=== PATIENT | female | born 1950 | race Caucasian/White ===

== ENCOUNTER 2022-01-05 10:05 | Inpatient (IN) | payer MEDICARE ==
[~2022-01-05] VITALS: Ht 165.1 cm; Wt 85.0 kg
[2022-01-05 11:14] LABS: Basophils # (auto) 0.1 10 ^3/uL (0-0.2); Eosinophils # (auto) 0 10 ^3/uL (0-0.8); Eosinophils % (auto) 0.2 % (0.0-7.0); Hematocrit 48.3 % (36.0-46.0); Hemoglobin 16.9 g/dL (12.2-16.2); Lymphocytes # (auto) 0.6 10 ^3/uL (0.4-5.4); Mean Corpuscular Hemoglobin 31.3 pg (28.0-32.0); Mean Corpuscular Hgb Conc. 34.9 g/dL (32.0-36.0); Mean Corpuscular Volume 89.5 fL (80.0-100.0); Monocytes # (auto) 0.3 10 ^3/uL (0-1.3); Monocytes % (auto) 4.9 % (0.0-12.0); Neutrophils # (auto) 5.4 10 ^3/uL (1.6-8.6); Neutrophils % (auto) 84.9 % (37.0-80.0); Nucleated Red Blood Cells % 0.2 %; Red Blood Cells 5.39 10^6/uL (4.0-5.20); Red Cell Distribution Width 13.3 % (11.8-14.3); White Blood Cell 6.4 10^3/uL (4.4-10.8)
[2022-01-05 11:27] LABS: Albumin 3.1 g/dL (3.4-5.0); Calcium 8.2 mg/dL (8.5-10.1); Magnesium 2.6 mg/dL (1.6-2.6)
[2022-01-05 11:33] LABS: BUN/Creatinine Ratio 18.9; Bilirubin, Total 1.5 mg/dL (0.2-1.0); Total Protein 7.6 g/dL (6.4-8.2)
[2022-01-05] MEDS ORDERED: POTASSIUM EFFERVESENT TAB 25 MEQ PO ONE (13:00)
[2022-01-05 13:11] LABS: Urine Bacteria NONE SEEN /hpf (None Seen); Urine Blood Negative /uL (Negative); Urine Specific Gravity 1.022 (1.001-1.035); Urine WBC 34 /hpf (0 - 5); Urine WBC Clumps PRESENT /hpf (None Seen)
[2022-01-05] MEDS ORDERED: cefTRIAXone 1GM/50ML D5W 50 ML IV ONE (15:00)
[2022-01-05] MEDS ORDERED: DexAMETHasone SOD PHOS 10MG/1ML VIAL INJ IV ONE (15:00)
[2022-01-05] MEDS ORDERED: AZITHROMYCIN 500MG/ 250ML 250 ML IV ONE (15:00)
[2022-01-05] MEDS ORDERED: MORPHINE SULFATE INJECTION 2 MG/ML SYRG IV PRN (15:45)
[2022-01-05] MEDS ORDERED: NITROGLYCERIN 0.4 MG SL TAB SL PRN (15:45)
[2022-01-05] MEDS ORDERED: REMDESIVIR PER PHARMACY 0 ML IV SCH (17:45)
[2022-01-05] MEDS ORDERED: REMDESIVIR 200 MG in NS 210ml LOADING DOSE ADULT IV ONE (20:00)
[2022-01-05] MEDS ORDERED: IOHEXOL 350 MG/ML 100ML IJ ONE (20:36)
[2022-01-05] MEDS ORDERED: ASCORBIC ACID 500 MG TAB PO SCH (22:00)
[2022-01-05] MEDS: ALBUTEROL SULF HFA 90MCG INH 200DOSE IN PRN (22:29)
[2022-01-05] MEDS: ENOXAPARIN SOD 40 MG/0.4 ML SYRINGE SC SCH (23:28)
[2022-01-05 23:39] VITALS: BP 120/67
[2022-01-06] VITALS (7 sets, daily range): BP systolic 119–142; BP diastolic 67–96
[2022-01-06] MEDS ORDERED: APIX5TAB PO (06:20)
[2022-01-06] MEDS ORDERED: ALBU108A5 INH (06:20)
[2022-01-06 06:30] LABS: Basophils # (auto) 0 10 ^3/uL (0-0.2); Basophils % (auto) 0.1 % (0.0-2.0); Eosinophils # (auto) 0 10 ^3/uL (0-0.8); Hematocrit 43.1 % (36.0-46.0); Hemoglobin 15.1 g/dL (12.2-16.2); Lymphocytes # (auto) 0.5 10 ^3/uL (0.4-5.4); Mean Corpuscular Hemoglobin 30.9 pg (28.0-32.0); Mean Corpuscular Volume 88.4 fL (80.0-100.0); Monocytes # (auto) 0.2 10 ^3/uL (0-1.3); Monocytes % (auto) 7.7 % (0.0-12.0); Neutrophils # (auto) 2.4 10 ^3/uL (1.6-8.6); Neutrophils % (auto) 77.2 % (37.0-80.0); Nucleated Red Blood Cells % 0.1 %; Red Blood Cells 4.87 10^6/uL (4.0-5.20); Red Cell Distribution Width 13.3 % (11.8-14.3); White Blood Cell 3.1 10^3/uL (4.4-10.8)
[2022-01-06 06:39] LABS: Albumin 2.5 g/dL (3.4-5.0); BUN/Creatinine Ratio 19.7; Calcium 8.1 mg/dL (8.5-10.1); Potassium 3.4 mmol/L (3.5-5.1)
[2022-01-06 06:43] LABS: Total Protein 6.5 g/dL (6.4-8.2)
[2022-01-06] MEDS: ZINC SULFATE 220mg CAP or TAB PO SCH (08:45)
[2022-01-06] MEDS: AZITHROMYCIN 500MG/ 250ML 250 ML IV SCH (08:45)
[2022-01-06] MEDS: ASCORBIC ACID 1,000 MG TAB PO SCH (08:45)
[2022-01-06] MEDS: ENOXAPARIN SOD 40 MG/0.4 ML SYRINGE SC SCH ×2 (08:46→22:31)
[2022-01-06] MEDS: CHOLECALCIFEROL (VITD3) 2,000 UNIT CAP/TAB PO SCH (08:46)
[2022-01-06] MEDS ORDERED: ZINC SULFATE 220mg CAP or TAB PO SCH (10:00)
[2022-01-06] MEDS ORDERED: DexAMETHasone SOD PHOS 10MG/1ML VIAL INJ IV SCH (10:00)
[2022-01-06] MEDS ORDERED: ENOXAPARIN SOD 40 MG/0.4 ML SYRINGE SC SCH (10:00)
[2022-01-06] MEDS: methylPREDNISolone SOD SUCC 125 MG/2 ML VL IV SCH ×2 (14:00→22:31)
[2022-01-06] MEDS: REMDESIVIR 100mg 100 MG in SODIUM CHL 0.9% 230 ML IV SCH (16:07)
[2022-01-06] MEDS: ALBUTEROL SULF HFA 90MCG INH 200DOSE IN PRN (22:02)
[2022-01-06] MEDS: PANTOPRAZOLE 40 MG TAB PO SCH (22:31)
[2022-01-07 05:00] VITALS: BP 114/73
[2022-01-07] MEDS: methylPREDNISolone SOD SUCC 125 MG/2 ML VL IV SCH ×3 (06:01→22:56)
[2022-01-07 07:09] LABS: Albumin 2.3 g/dL (3.4-5.0); Calcium 8.2 mg/dL (8.5-10.1); Potassium 4.3 mmol/L (3.5-5.1)
[2022-01-07 07:12] LABS: BUN/Creatinine Ratio 23.2; Bilirubin, Total 1.2 mg/dL (0.2-1.0); Total Protein 6.4 g/dL (6.4-8.2)
[2022-01-07 08:00] VITALS: BP 142/80
[2022-01-07] MEDS: AZITHROMYCIN 500MG/ 250ML 250 ML IV SCH (09:34)
[2022-01-07] MEDS: ENOXAPARIN SOD 40 MG/0.4 ML SYRINGE SC SCH ×2 (09:34→22:49)
[2022-01-07] MEDS: CHOLECALCIFEROL (VITD3) 2,000 UNIT CAP/TAB PO SCH (09:34)
[2022-01-07] MEDS: ASCORBIC ACID 1,000 MG TAB PO SCH (09:34)
[2022-01-07] MEDS: ZINC SULFATE 220mg CAP or TAB PO SCH (09:34)
[2022-01-07] MEDS: PANTOPRAZOLE 40 MG TAB PO SCH ×2 (09:34→22:49)
[2022-01-07 13:00] VITALS: BP 115/65
[2022-01-07] MEDS: REMDESIVIR 100mg 100 MG in SODIUM CHL 0.9% 230 ML IV SCH (13:36)
[2022-01-07 16:00] VITALS: BP 116/59
[2022-01-07] MEDS: ALBUTEROL SULF HFA 90MCG INH 200DOSE IN PRN (21:15)
[2022-01-07 22:00] VITALS: BP 110/68
[2022-01-08] VITALS (8 sets, daily range): BP systolic 109–142; BP diastolic 66–99
[2022-01-08] MEDS: methylPREDNISolone SOD SUCC 125 MG/2 ML VL IV SCH ×3 (05:28→22:43)
[2022-01-08] MEDS: ALBUTEROL SULF HFA 90MCG INH 200DOSE IN PRN (05:43)
[2022-01-08 05:48] LABS: Potassium 3.6 mmol/L (3.5-5.1)
[2022-01-08 05:54] LABS: Albumin 2.4 g/dL (3.4-5.0); BUN/Creatinine Ratio 25.9; Bilirubin, Total 0.9 mg/dL (0.2-1.0); Total Protein 6.2 g/dL (6.4-8.2)
[2022-01-08] MEDS: CHOLECALCIFEROL (VITD3) 2,000 UNIT CAP/TAB PO SCH (11:03)
[2022-01-08] MEDS: ZINC SULFATE 220mg CAP or TAB PO SCH (11:04)
[2022-01-08] MEDS: ENOXAPARIN SOD 40 MG/0.4 ML SYRINGE SC SCH (11:04)
[2022-01-08] MEDS: PANTOPRAZOLE 40 MG TAB PO SCH ×2 (11:04→22:43)
[2022-01-08] MEDS: ASCORBIC ACID 1,000 MG TAB PO SCH (11:04)
[2022-01-08] MEDS: AZITHROMYCIN 500MG/ 250ML 250 ML IV SCH (11:04)
[2022-01-08] MEDS ORDERED: BUDESONIDE (INHALATION) 0.5 MG/2 ML NEB NEB ONE (12:00)
[2022-01-08] MEDS ORDERED: FAMOTIDINE 20 MG TAB PO ONE (12:00)
[2022-01-08] MEDS: IPRATROPIUM BROM 0.5 MG/2.5ML INH SOL NEB SCH ×2 (12:00→18:00)
[2022-01-08] MEDS: ALBUTEROL SULF 2.5 MG/0.5ML(0.5%) NEB SOLN NEB SCH ×2 (12:00→18:00)
[2022-01-08] MEDS ORDERED: cefTRIAXone 1GM/50ML D5W 50 ML IV ONE (12:00)
[2022-01-08] MEDS: REMDESIVIR 100mg 100 MG in SODIUM CHL 0.9% 230 ML IV SCH (15:06)
[2022-01-08] MEDS: BUDESONIDE (INHALATION) 0.5 MG/2 ML NEB NEB SCH (22:00)
[2022-01-08] MEDS: APIXABAN 5 MG TAB PO SCH (22:43)
[2022-01-09 05:00] VITALS: BP 124/73
[2022-01-09] MEDS: methylPREDNISolone SOD SUCC 125 MG/2 ML VL IV SCH ×3 (05:46→22:40)
[2022-01-09 07:58] LABS: Albumin 2.7 g/dL (3.4-5.0); BUN/Creatinine Ratio 27.3; Bilirubin, Total 1.2 mg/dL (0.2-1.0); Calcium 8.8 mg/dL (8.5-10.1); Potassium 3.6 mmol/L (3.5-5.1); Total Protein 6.6 g/dL (6.4-8.2)
[2022-01-09] MEDS: ALBUTEROL SULF 2.5 MG/0.5ML(0.5%) NEB SOLN NEB SCH (08:28)
[2022-01-09] MEDS: BUDESONIDE (INHALATION) 0.5 MG/2 ML NEB NEB SCH (08:28)
[2022-01-09] MEDS: IPRATROPIUM BROM 0.5 MG/2.5ML INH SOL NEB SCH (08:28)
[2022-01-09 09:00] VITALS: BP 122/71
[2022-01-09] MEDS: cefTRIAXone 1GM/50ML D5W 50 ML IV SCH (09:07)
[2022-01-09] MEDS: ZINC SULFATE 220mg CAP or TAB PO SCH (09:07)
[2022-01-09] MEDS: APIXABAN 5 MG TAB PO SCH ×2 (09:08→22:34)
[2022-01-09] MEDS: ASCORBIC ACID 1,000 MG TAB PO SCH (09:08)
[2022-01-09] MEDS: FAMOTIDINE 20 MG TAB PO SCH (09:08)
[2022-01-09] MEDS: PANTOPRAZOLE 40 MG TAB PO SCH ×2 (09:08→22:34)
[2022-01-09] MEDS: CHOLECALCIFEROL (VITD3) 2,000 UNIT CAP/TAB PO SCH (09:08)
[2022-01-09] MEDS: AZITHROMYCIN 500MG/ 250ML 250 ML IV SCH (10:30)
[2022-01-09] MEDS: AMPICILLIN INJ 500 MG in SODIUM CHL 0.9% 50 ML IV SCH ×2 (12:00→18:15)
[2022-01-09 14:00] VITALS: BP 125/85
[2022-01-09] MEDS: ONDANSETRON HCL 4 MG/2 ML VIAL IV PRN (14:39)
[2022-01-09] MEDS: REMDESIVIR 100mg 100 MG in SODIUM CHL 0.9% 230 ML IV SCH (15:02)
[2022-01-09 17:00] VITALS: BP 124/65
[2022-01-09] MEDS: BUDESONIDE (INHALATION) 180 MCG IH IN SCH (21:22)
[2022-01-09] MEDS: ALBUTEROL SULF HFA 90MCG INH 200DOSE IN PRN (21:22)
[2022-01-09 22:00] VITALS: BP 139/92
[2022-01-10] MEDS ORDERED: AMPICILLIN SOD 500 MG INJ ONE (00:58)
[2022-01-10] MEDS: AMPICILLIN INJ 500 MG in SODIUM CHL 0.9% 50 ML IV SCH ×5 (01:04→23:51)
[2022-01-10 05:00] VITALS: BP 126/63
[2022-01-10] MEDS: methylPREDNISolone SOD SUCC 125 MG/2 ML VL IV SCH ×2 (06:59→21:33)
[2022-01-10 09:00] VITALS: BP 140/68
[2022-01-10] MEDS: cefTRIAXone 1GM/50ML D5W 50 ML IV SCH ×2 (09:56→15:30)
[2022-01-10] MEDS: CHOLECALCIFEROL (VITD3) 2,000 UNIT CAP/TAB PO SCH (09:57)
[2022-01-10] MEDS: ZINC SULFATE 220mg CAP or TAB PO SCH (09:57)
[2022-01-10] MEDS: ASCORBIC ACID 1,000 MG TAB PO SCH (09:57)
[2022-01-10] MEDS: DOCUSATE SOD 100 MG CAP PO PRN (09:57)
[2022-01-10] MEDS: FAMOTIDINE 20 MG TAB PO SCH (09:57)
[2022-01-10] MEDS: APIXABAN 5 MG TAB PO SCH ×2 (09:57→21:33)
[2022-01-10] MEDS: PANTOPRAZOLE 40 MG TAB PO SCH ×2 (09:57→21:33)
[2022-01-10] MEDS: BUDESONIDE (INHALATION) 180 MCG IH IN SCH ×2 (10:00→21:46)
[2022-01-10] MEDS: AZITHROMYCIN 500MG/ 250ML 250 ML IV SCH (10:08)
[2022-01-10] MEDS ORDERED: POTASSIUM CHL 20 Meq TABLET PO ONE (11:15)
[2022-01-10] MEDS ORDERED: FUROSEMIDE 20 MG/2 ML VIAL IV ONE (11:15)
[2022-01-10] MEDS: ALBUTEROL SULF HFA 90MCG INH 200DOSE IN PRN ×2 (12:32→21:46)
[2022-01-10 13:00] VITALS: BP 118/78
[2022-01-10] MEDS ORDERED: methylPREDNISolone SOD SUCC 40 MG/ML VL ONE (15:27)
[2022-01-10 17:00] VITALS: BP 109/81
[2022-01-10 22:00] VITALS: BP 116/56
[2022-01-11 05:00] VITALS: BP 121/61
[2022-01-11] MEDS: BUDESONIDE (INHALATION) 180 MCG IH IN SCH ×2 (06:57→19:12)
[2022-01-11] MEDS: ALBUTEROL SULF HFA 90MCG INH 200DOSE IN PRN ×2 (06:57→19:12)
[2022-01-11] MEDS: AMPICILLIN INJ 500 MG in SODIUM CHL 0.9% 50 ML IV SCH ×3 (07:14→18:50)
[2022-01-11 09:00] VITALS: BP 131/86
[2022-01-11] MEDS: methylPREDNISolone SOD SUCC 125 MG/2 ML VL IV SCH ×2 (09:59→22:07)
[2022-01-11] MEDS: FAMOTIDINE 20 MG TAB PO SCH (09:59)
[2022-01-11] MEDS: ZINC SULFATE 220mg CAP or TAB PO SCH (09:59)
[2022-01-11] MEDS: DOCUSATE SOD 100 MG CAP PO PRN (09:59)
[2022-01-11] MEDS: APIXABAN 5 MG TAB PO SCH ×2 (09:59→22:07)
[2022-01-11] MEDS: ASCORBIC ACID 1,000 MG TAB PO SCH (10:00)
[2022-01-11] MEDS: CHOLECALCIFEROL (VITD3) 2,000 UNIT CAP/TAB PO SCH (10:01)
[2022-01-11] MEDS: PANTOPRAZOLE 40 MG TAB PO SCH ×2 (10:16→22:07)
[2022-01-11] MEDS ORDERED: SALINE 0.65 % NASAL SPRAY 45ML BOTTLE EACHNOSTRI ONE (11:00)
[2022-01-11] MEDS ORDERED: DOCUSATE SOD 100 MG CAP PO ONE (11:00)
[2022-01-11] MEDS ORDERED: LACTULOSE 20Gm/30ML SOLN PO ONE (11:00)
[2022-01-11 13:00] VITALS: BP 135/96
[2022-01-11 17:00] VITALS: BP 127/81
[2022-01-11] MEDS: SALINE 0.65 % NASAL SPRAY 45ML BOTTLE EACHNOSTRI SCH ×2 (18:58→22:00)
[2022-01-11 22:09] VITALS: BP 158/86
[2022-01-12] MEDS: AMPICILLIN INJ 500 MG in SODIUM CHL 0.9% 50 ML IV SCH ×4 (00:12→17:02)
[2022-01-12 05:12] VITALS: BP 133/65
[2022-01-12] MEDS: SALINE 0.65 % NASAL SPRAY 45ML BOTTLE EACHNOSTRI SCH ×4 (06:22→21:16)
[2022-01-12 06:42] LABS: Basophils # (auto) 0 10 ^3/uL (0-0.2); Basophils % (auto) 0.1 % (0.0-2.0); Eosinophils # (auto) 0 10 ^3/uL (0-0.8); Hematocrit 45.8 % (36.0-46.0); Hemoglobin 15.4 g/dL (12.2-16.2); Lymphocytes # (auto) 0.4 10 ^3/uL (0.4-5.4); Lymphocytes % (auto) 6.4 % (10.0-50.0); Mean Corpuscular Hemoglobin 30.1 pg (28.0-32.0); Mean Corpuscular Hgb Conc. 33.6 g/dL (32.0-36.0); Mean Corpuscular Volume 89.4 fL (80.0-100.0); Monocytes # (auto) 0.1 10 ^3/uL (0-1.3); Monocytes % (auto) 2.2 % (0.0-12.0); Neutrophils # (auto) 5.2 10 ^3/uL (1.6-8.6); Neutrophils % (auto) 91.3 % (37.0-80.0); Nucleated Red Blood Cells % 0.1 %; Red Blood Cells 5.12 10^6/uL (4.0-5.20); Red Cell Distribution Width 13.4 % (11.8-14.3); White Blood Cell 5.7 10^3/uL (4.4-10.8)
[2022-01-12 07:02] LABS: Potassium 4.5 mmol/L (3.5-5.1)
[2022-01-12 07:08] LABS: BUN/Creatinine Ratio 30.4; Calcium 7.9 mg/dL (8.5-10.1)
[2022-01-12] MEDS: cefTRIAXone 1GM/50ML D5W 50 ML IV SCH (08:09)
[2022-01-12] MEDS: methylPREDNISolone SOD SUCC 125 MG/2 ML VL IV SCH ×2 (08:55→21:17)
[2022-01-12] MEDS: ZINC SULFATE 220mg CAP or TAB PO SCH (08:56)
[2022-01-12] MEDS: APIXABAN 5 MG TAB PO SCH ×2 (08:59→21:17)
[2022-01-12] MEDS: FAMOTIDINE 20 MG TAB PO SCH (08:59)
[2022-01-12] MEDS: PANTOPRAZOLE 40 MG TAB PO SCH ×2 (08:59→21:17)
[2022-01-12 09:00] VITALS: BP 154/93
[2022-01-12] MEDS: CHOLECALCIFEROL (VITD3) 2,000 UNIT CAP/TAB PO SCH (09:00)
[2022-01-12] MEDS: ASCORBIC ACID 1,000 MG TAB PO SCH (09:00)
[2022-01-12] MEDS: BUDESONIDE (INHALATION) 180 MCG IH IN SCH ×2 (09:48→22:00)
[2022-01-12] MEDS: ALBUTEROL SULF HFA 90MCG INH 200DOSE IN PRN (09:48)
[2022-01-12] MEDS ORDERED: FUROSEMIDE 40 MG TAB PO ONE (12:45)
[2022-01-12] MEDS ORDERED: POTASSIUM CHL 20 Meq TABLET PO ONE (12:45)
[2022-01-12 13:00] VITALS: BP 137/84
[2022-01-12 17:00] VITALS: BP 113/64
[2022-01-12 21:20] VITALS: BP 128/61
[2022-01-13] MEDS: AMPICILLIN INJ 500 MG in SODIUM CHL 0.9% 50 ML IV SCH ×4 (00:25→23:24)
[2022-01-13 05:00] VITALS: BP 126/53
[2022-01-13] MEDS: BUDESONIDE (INHALATION) 180 MCG IH IN SCH ×2 (05:45→18:45)
[2022-01-13] MEDS: ALBUTEROL SULF HFA 90MCG INH 200DOSE IN PRN ×2 (05:46→20:11)
[2022-01-13] MEDS: SALINE 0.65 % NASAL SPRAY 45ML BOTTLE EACHNOSTRI SCH ×5 (06:14→22:01)
[2022-01-13 09:00] VITALS: BP 110/67
[2022-01-13] MEDS: methylPREDNISolone SOD SUCC 125 MG/2 ML VL IV SCH ×2 (09:04→21:57)
[2022-01-13] MEDS: ZINC SULFATE 220mg CAP or TAB PO SCH (09:04)
[2022-01-13] MEDS: cefTRIAXone 1GM/50ML D5W 50 ML IV SCH (09:04)
[2022-01-13] MEDS: APIXABAN 5 MG TAB PO SCH ×2 (09:05→21:57)
[2022-01-13] MEDS: POTASSIUM CHL 20 Meq TABLET PO SCH (09:07)
[2022-01-13] MEDS: FAMOTIDINE 20 MG TAB PO SCH (09:08)
[2022-01-13] MEDS: FUROSEMIDE 40 MG TAB PO SCH (09:08)
[2022-01-13] MEDS: CHOLECALCIFEROL (VITD3) 2,000 UNIT CAP/TAB PO SCH (09:10)
[2022-01-13] MEDS: ASCORBIC ACID 1,000 MG TAB PO SCH (09:10)
[2022-01-13] MEDS: PANTOPRAZOLE 40 MG TAB PO SCH ×2 (09:10→21:57)
[2022-01-13 13:00] VITALS: BP 135/80
[2022-01-13 16:39] VITALS: BP 127/85
[2022-01-13 22:00] VITALS: BP 137/54
[2022-01-14 05:00] VITALS: BP 104/58
[2022-01-14] MEDS: SALINE 0.65 % NASAL SPRAY 45ML BOTTLE EACHNOSTRI SCH ×4 (06:20→21:19)
[2022-01-14] MEDS: AMPICILLIN INJ 500 MG in SODIUM CHL 0.9% 50 ML IV SCH ×4 (06:21→23:40)
[2022-01-14] MEDS: BUDESONIDE (INHALATION) 180 MCG IH IN SCH ×2 (06:30→19:24)
[2022-01-14] MEDS: ALBUTEROL SULF HFA 90MCG INH 200DOSE IN PRN ×2 (07:15→19:24)
[2022-01-14 08:30] VITALS: BP 100/54
[2022-01-14] MEDS: cefTRIAXone 1GM/50ML D5W 50 ML IV SCH (09:00)
[2022-01-14] MEDS: ZINC SULFATE 220mg CAP or TAB PO SCH (09:11)
[2022-01-14] MEDS: APIXABAN 5 MG TAB PO SCH ×2 (09:11→21:18)
[2022-01-14] MEDS: methylPREDNISolone SOD SUCC 125 MG/2 ML VL IV SCH ×2 (09:11→21:18)
[2022-01-14] MEDS: FUROSEMIDE 40 MG TAB PO SCH (09:12)
[2022-01-14] MEDS: POTASSIUM CHL 20 Meq TABLET PO SCH (09:12)
[2022-01-14] MEDS: FAMOTIDINE 20 MG TAB PO SCH (09:12)
[2022-01-14] MEDS: PANTOPRAZOLE 40 MG TAB PO SCH ×2 (09:13→21:18)
[2022-01-14] MEDS: CHOLECALCIFEROL (VITD3) 2,000 UNIT CAP/TAB PO SCH (09:13)
[2022-01-14] MEDS: ASCORBIC ACID 1,000 MG TAB PO SCH (09:13)
[2022-01-14 13:00] VITALS: BP 107/62
[2022-01-14 17:00] VITALS: BP 111/73
[2022-01-14 22:00] VITALS: BP 95/56
[2022-01-15 05:00] VITALS: BP 112/68
[2022-01-15] MEDS: SALINE 0.65 % NASAL SPRAY 45ML BOTTLE EACHNOSTRI SCH ×4 (05:43→22:09)
[2022-01-15] MEDS: AMPICILLIN INJ 500 MG in SODIUM CHL 0.9% 50 ML IV SCH (05:43)
[2022-01-15] MEDS: ALBUTEROL SULF HFA 90MCG INH 200DOSE IN PRN ×2 (06:36→19:54)
[2022-01-15] MEDS: BUDESONIDE (INHALATION) 180 MCG IH IN SCH ×2 (06:36→19:54)
[2022-01-15 08:00] VITALS: BP 107/62
[2022-01-15] MEDS: FUROSEMIDE 40 MG TAB PO SCH (10:00)
[2022-01-15] MEDS: cefTRIAXone 1GM/50ML D5W 50 ML IV SCH (10:04)
[2022-01-15] MEDS: PANTOPRAZOLE 40 MG TAB PO SCH ×2 (10:05→22:10)
[2022-01-15] MEDS: CHOLECALCIFEROL (VITD3) 2,000 UNIT CAP/TAB PO SCH (10:05)
[2022-01-15] MEDS: POTASSIUM CHL 20 Meq TABLET PO SCH (10:05)
[2022-01-15] MEDS: APIXABAN 5 MG TAB PO SCH ×2 (10:05→22:10)
[2022-01-15] MEDS: FAMOTIDINE 20 MG TAB PO SCH (10:05)
[2022-01-15] MEDS: ZINC SULFATE 220mg CAP or TAB PO SCH (10:05)
[2022-01-15] MEDS: methylPREDNISolone SOD SUCC 125 MG/2 ML VL IV SCH (10:05)
[2022-01-15] MEDS: ASCORBIC ACID 1,000 MG TAB PO SCH (10:06)
[2022-01-15 12:00] VITALS: BP 124/78
[2022-01-15] MEDS: Ensure HIGH Protein Vanilla 8oz Bottle PO SCH ×2 (12:00→18:50)
[2022-01-15 16:00] VITALS: BP 110/66
[2022-01-15 22:00] VITALS: BP 119/78
[2022-01-15] MEDS: AMOXICILLIN/CLAVUL 875 MG TAB PO SCH (22:10)
[2022-01-16 05:00] VITALS: BP 94/49
[2022-01-16] MEDS: BUDESONIDE (INHALATION) 180 MCG IH IN SCH ×2 (07:16→19:37)
[2022-01-16] MEDS: ALBUTEROL SULF HFA 90MCG INH 200DOSE IN PRN ×2 (07:17→19:37)
[2022-01-16 08:07] VITALS: BP 95/57
[2022-01-16] MEDS: predniSONE 20 MG TAB PO SCH (09:30)
[2022-01-16] MEDS: SALINE 0.65 % NASAL SPRAY 45ML BOTTLE EACHNOSTRI SCH ×4 (09:30→22:00)
[2022-01-16] MEDS: Ensure HIGH Protein Vanilla 8oz Bottle PO SCH ×3 (09:30→18:40)
[2022-01-16] MEDS: AMOXICILLIN/CLAVUL 875 MG TAB PO SCH ×2 (09:31→22:00)
[2022-01-16] MEDS: APIXABAN 5 MG TAB PO SCH ×2 (09:31→22:00)
[2022-01-16] MEDS: POTASSIUM CHL 20 Meq TABLET PO SCH (09:31)
[2022-01-16] MEDS: ZINC SULFATE 220mg CAP or TAB PO SCH (09:31)
[2022-01-16] MEDS: CHOLECALCIFEROL (VITD3) 2,000 UNIT CAP/TAB PO SCH (09:33)
[2022-01-16] MEDS: FAMOTIDINE 20 MG TAB PO SCH (09:33)
[2022-01-16] MEDS: ASCORBIC ACID 1,000 MG TAB PO SCH (09:33)
[2022-01-16] MEDS: PANTOPRAZOLE 40 MG TAB PO SCH ×2 (09:33→22:00)
[2022-01-16] MEDS: FUROSEMIDE 40 MG TAB PO SCH (10:00)
[2022-01-16 12:26] VITALS: BP 98/49
[2022-01-16 17:00] VITALS: BP 100/57
[2022-01-16 22:00] VITALS: BP 113/58
[2022-01-17 05:00] VITALS: BP 101/61
[2022-01-17] MEDS: SALINE 0.65 % NASAL SPRAY 45ML BOTTLE EACHNOSTRI SCH ×4 (06:00→22:06)
[2022-01-17] MEDS: BUDESONIDE (INHALATION) 180 MCG IH IN SCH ×2 (07:32→19:41)
[2022-01-17] MEDS: ALBUTEROL SULF HFA 90MCG INH 200DOSE IN PRN ×2 (07:32→19:41)
[2022-01-17 09:00] VITALS: BP 101/49
[2022-01-17] MEDS: predniSONE 20 MG TAB PO SCH (09:35)
[2022-01-17] MEDS: Ensure HIGH Protein Vanilla 8oz Bottle PO SCH ×3 (09:35→17:50)
[2022-01-17] MEDS: AMOXICILLIN/CLAVUL 875 MG TAB PO SCH ×2 (09:36→22:06)
[2022-01-17] MEDS: CHOLECALCIFEROL (VITD3) 2,000 UNIT CAP/TAB PO SCH (09:36)
[2022-01-17] MEDS: APIXABAN 5 MG TAB PO SCH ×2 (09:36→22:06)
[2022-01-17] MEDS: ASCORBIC ACID 1,000 MG TAB PO SCH (09:36)
[2022-01-17] MEDS: PANTOPRAZOLE 40 MG TAB PO SCH ×2 (09:36→22:07)
[2022-01-17] MEDS: ZINC SULFATE 220mg CAP or TAB PO SCH (09:36)
[2022-01-17 13:00] VITALS: BP 130/85
[2022-01-17 17:00] VITALS: BP 99/51
[2022-01-17 22:00] VITALS: BP 102/60
[2022-01-18 05:00] VITALS: BP 106/73
[2022-01-18 05:38] LABS: Basophils # (auto) 0 10 ^3/uL (0-0.2); Basophils % (auto) 0.1 % (0.0-2.0); Eosinophils # (auto) 0.1 10 ^3/uL (0-0.8); Hematocrit 44.2 % (36.0-46.0); Hemoglobin 15.5 g/dL (12.2-16.2); Lymphocytes # (auto) 1.4 10 ^3/uL (0.4-5.4); Lymphocytes % (auto) 17.1 % (10.0-50.0); Mean Corpuscular Hemoglobin 31.3 pg (28.0-32.0); Mean Corpuscular Hgb Conc. 35.2 g/dL (32.0-36.0); Mean Corpuscular Volume 88.9 fL (80.0-100.0); Monocytes # (auto) 0.2 10 ^3/uL (0-1.3); Monocytes % (auto) 2.8 % (0.0-12.0); Neutrophils # (auto) 6.6 10 ^3/uL (1.6-8.6); Nucleated Red Blood Cells % 0.1 %; Red Blood Cells 4.97 10^6/uL (4.0-5.20); Red Cell Distribution Width 13.4 % (11.8-14.3); White Blood Cell 8.3 10^3/uL (4.4-10.8)
[2022-01-18] MEDS: SALINE 0.65 % NASAL SPRAY 45ML BOTTLE EACHNOSTRI SCH ×4 (05:43→21:46)
[2022-01-18 05:50] LABS: Albumin 2.5 g/dL (3.4-5.0); Calcium 8.3 mg/dL (8.5-10.1); Potassium 4.1 mmol/L (3.5-5.1)
[2022-01-18 05:54] LABS: BUN/Creatinine Ratio 31.3; Bilirubin, Total 1.5 mg/dL (0.2-1.0); Total Protein 6.2 g/dL (6.4-8.2)
[2022-01-18] MEDS: BUDESONIDE (INHALATION) 180 MCG IH IN SCH ×2 (06:37→20:08)
[2022-01-18] MEDS: ALBUTEROL SULF HFA 90MCG INH 200DOSE IN PRN ×2 (06:37→20:08)
[2022-01-18 08:00] VITALS: BP 98/68
[2022-01-18] MEDS: AMOXICILLIN/CLAVUL 875 MG TAB PO SCH ×2 (09:30→21:46)
[2022-01-18] MEDS: PANTOPRAZOLE 40 MG TAB PO SCH ×2 (09:30→21:46)
[2022-01-18] MEDS: predniSONE 20 MG TAB PO SCH (09:30)
[2022-01-18] MEDS: APIXABAN 5 MG TAB PO SCH ×2 (09:30→21:46)
[2022-01-18] MEDS: Ensure HIGH Protein Vanilla 8oz Bottle PO SCH ×3 (09:30→17:28)
[2022-01-18] MEDS: ZINC SULFATE 220mg CAP or TAB PO SCH (09:30)
[2022-01-18] MEDS: ASCORBIC ACID 1,000 MG TAB PO SCH (09:31)
[2022-01-18] MEDS: CHOLECALCIFEROL (VITD3) 2,000 UNIT CAP/TAB PO SCH (09:31)
[2022-01-18 12:47] LABS: Urine Bacteria NONE SEEN /hpf (None Seen); Urine Blood Negative /uL (Negative); Urine Mucus FEW (None Seen); Urine WBC 3 /hpf (0 - 5)
[2022-01-18 13:00] VITALS: BP 113/63
[2022-01-18 22:00] VITALS: BP 133/63
[2022-01-19 04:53] VITALS: BP 123/76
[2022-01-19] MEDS: SALINE 0.65 % NASAL SPRAY 45ML BOTTLE EACHNOSTRI SCH ×4 (05:57→21:50)
[2022-01-19] MEDS: BUDESONIDE (INHALATION) 180 MCG IH IN SCH ×2 (06:53→19:01)
[2022-01-19] MEDS: ASCORBIC ACID 1,000 MG TAB PO SCH ×3 (08:00→21:51)
[2022-01-19] MEDS: Ensure HIGH Protein Vanilla 8oz Bottle PO SCH ×3 (08:00→18:00)
[2022-01-19] MEDS ORDERED: THIAMINE 100mg/ml INJ (200mg/2ml VIAL) IV ONE (08:00)
[2022-01-19] MEDS: ALBUTEROL SULF HFA 90MCG INH 200DOSE IN PRN ×2 (08:05→20:46)
[2022-01-19 09:00] VITALS: BP 88/64
[2022-01-19] MEDS: CHOLECALCIFEROL (VITD3) 2,000 UNIT CAP/TAB PO SCH (10:00)
[2022-01-19] MEDS: AMOXICILLIN/CLAVUL 875 MG TAB PO SCH ×2 (10:00→21:50)
[2022-01-19] MEDS: methylPREDNISolone SOD SUCC 40 MG/ML VL IV SCH ×2 (10:00→21:50)
[2022-01-19] MEDS: APIXABAN 5 MG TAB PO SCH ×2 (10:00→21:51)
[2022-01-19] MEDS: FAMOTIDINE 20 MG TAB PO SCH ×2 (10:00→21:51)
[2022-01-19] MEDS: ZINC SULFATE 220mg CAP or TAB PO SCH (10:00)
[2022-01-19 12:00] VITALS: BP 97/58
[2022-01-19 16:00] VITALS: BP 110/61
[2022-01-19 22:00] VITALS: BP 112/82
[2022-01-20 05:00] VITALS: BP 113/66
[2022-01-20] MEDS: SALINE 0.65 % NASAL SPRAY 45ML BOTTLE EACHNOSTRI SCH ×4 (06:00→22:00)
[2022-01-20] MEDS: ALBUTEROL SULF HFA 90MCG INH 200DOSE IN PRN ×2 (06:32→19:14)
[2022-01-20] MEDS: BUDESONIDE (INHALATION) 180 MCG IH IN SCH ×2 (06:32→19:14)
[2022-01-20 08:00] VITALS: BP 100/72
[2022-01-20] MEDS: ASCORBIC ACID 1,000 MG TAB PO SCH ×3 (08:00→22:20)
[2022-01-20] MEDS: Ensure HIGH Protein Vanilla 8oz Bottle PO SCH ×3 (08:00→18:00)
[2022-01-20 09:37] VITALS: BP 100/72
[2022-01-20] MEDS: ZINC SULFATE 220mg CAP or TAB PO SCH (10:00)
[2022-01-20] MEDS: APIXABAN 5 MG TAB PO SCH ×2 (10:00→22:15)
[2022-01-20] MEDS: methylPREDNISolone SOD SUCC 40 MG/ML VL IV SCH ×2 (10:00→22:14)
[2022-01-20] MEDS: FAMOTIDINE 20 MG TAB PO SCH ×2 (10:00→22:16)
[2022-01-20] MEDS: CHOLECALCIFEROL (VITD3) 2,000 UNIT CAP/TAB PO SCH (10:00)
[2022-01-20] MEDS: AMOXICILLIN/CLAVUL 875 MG TAB PO SCH ×2 (10:00→22:15)
[2022-01-20] MEDS: THIAMINE HCL 100 MG TAB PO SCH (10:00)
[2022-01-20 13:00] VITALS: BP 111/79
[2022-01-20 17:00] VITALS: BP 129/78
[2022-01-20 22:00] VITALS: BP 128/71
[2022-01-21 04:54] VITALS: BP 128/74
[2022-01-21] MEDS: SALINE 0.65 % NASAL SPRAY 45ML BOTTLE EACHNOSTRI SCH ×4 (05:39→22:49)
[2022-01-21] MEDS: Ensure HIGH Protein Vanilla 8oz Bottle PO SCH ×3 (08:00→18:00)
[2022-01-21] MEDS: ASCORBIC ACID 1,000 MG TAB PO SCH ×3 (08:00→22:50)
[2022-01-21 08:14] VITALS: BP 101/50
[2022-01-21 08:48] LABS: Basophils # (auto) 0 10 ^3/uL (0-0.2); Basophils % (auto) 0.1 % (0.0-2.0); Eosinophils # (auto) 0 10 ^3/uL (0-0.8); Hematocrit 44.2 % (36.0-46.0); Hemoglobin 15.3 g/dL (12.2-16.2); Lymphocytes # (auto) 0.8 10 ^3/uL (0.4-5.4); Lymphocytes % (auto) 8.8 % (10.0-50.0); Mean Corpuscular Hemoglobin 31.3 pg (28.0-32.0); Mean Corpuscular Hgb Conc. 34.7 g/dL (32.0-36.0); Mean Corpuscular Volume 90.3 fL (80.0-100.0); Monocytes # (auto) 0.2 10 ^3/uL (0-1.3); Monocytes % (auto) 2.5 % (0.0-12.0); Neutrophils # (auto) 8.6 10 ^3/uL (1.6-8.6); Neutrophils % (auto) 88.6 % (37.0-80.0); Nucleated Red Blood Cells % 0.1 %; Red Blood Cells 4.89 10^6/uL (4.0-5.20); Red Cell Distribution Width 13.2 % (11.8-14.3); White Blood Cell 9.7 10^3/uL (4.4-10.8)
[2022-01-21] MEDS: methylPREDNISolone SOD SUCC 40 MG/ML VL IV SCH ×2 (10:00→22:49)
[2022-01-21] MEDS: CHOLECALCIFEROL (VITD3) 2,000 UNIT CAP/TAB PO SCH (10:00)
[2022-01-21] MEDS: FAMOTIDINE 20 MG TAB PO SCH ×2 (10:00→22:49)
[2022-01-21] MEDS: ZINC SULFATE 220mg CAP or TAB PO SCH (10:00)
[2022-01-21] MEDS: AMOXICILLIN/CLAVUL 875 MG TAB PO SCH ×2 (10:00→22:49)
[2022-01-21] MEDS: THIAMINE HCL 100 MG TAB PO SCH (10:00)
[2022-01-21] MEDS: APIXABAN 5 MG TAB PO SCH ×2 (10:00→22:49)
[2022-01-21 11:37] LABS: Albumin 2.4 g/dL (3.4-5.0); BUN/Creatinine Ratio 26.4; Bilirubin, Total 1.1 mg/dL (0.2-1.0); Calcium 8.5 mg/dL (8.5-10.1); Total Protein 6.2 g/dL (6.4-8.2)
[2022-01-21 12:39] VITALS: BP 113/63
[2022-01-21] MEDS: BUDESONIDE (INHALATION) 180 MCG IH IN SCH ×2 (14:50→20:36)
[2022-01-21] MEDS: ALBUTEROL SULF HFA 90MCG INH 200DOSE IN PRN ×2 (14:51→20:36)
[2022-01-21 16:50] VITALS: BP 116/62
[2022-01-21 22:00] VITALS: BP 101/34
[2022-01-22 05:00] VITALS: BP 110/65
[2022-01-22] MEDS: SALINE 0.65 % NASAL SPRAY 45ML BOTTLE EACHNOSTRI SCH ×4 (06:00→22:58)
[2022-01-22] MEDS: BUDESONIDE (INHALATION) 180 MCG IH IN SCH ×2 (07:20→19:22)
[2022-01-22] MEDS: ALBUTEROL SULF HFA 90MCG INH 200DOSE IN PRN ×2 (07:20→19:22)
[2022-01-22 07:35] LABS: Basophils # (auto) 0 10 ^3/uL (0-0.2); Basophils % (auto) 0.1 % (0.0-2.0); Eosinophils # (auto) 0 10 ^3/uL (0-0.8); Eosinophils % (auto) 0.1 % (0.0-7.0); Hematocrit 43.3 % (36.0-46.0); Hemoglobin 14.9 g/dL (12.2-16.2); Lymphocytes # (auto) 0.9 10 ^3/uL (0.4-5.4); Mean Corpuscular Hemoglobin 31.1 pg (28.0-32.0); Mean Corpuscular Hgb Conc. 34.5 g/dL (32.0-36.0); Mean Corpuscular Volume 90.2 fL (80.0-100.0); Monocytes # (auto) 0.2 10 ^3/uL (0-1.3); Monocytes % (auto) 2.3 % (0.0-12.0); Neutrophils # (auto) 9.1 10 ^3/uL (1.6-8.6); Neutrophils % (auto) 88.5 % (37.0-80.0); Nucleated Red Blood Cells % 0.1 %; Red Cell Distribution Width 13.6 % (11.8-14.3); White Blood Cell 10.2 10^3/uL (4.4-10.8)
[2022-01-22 07:56] LABS: Potassium 4.1 mmol/L (3.5-5.1)
[2022-01-22 08:00] VITALS: BP 117/59
[2022-01-22 08:07] LABS: Albumin 2.4 g/dL (3.4-5.0); Calcium 8.6 mg/dL (8.5-10.1)
[2022-01-22 08:10] LABS: Total Protein 5.9 g/dL (6.4-8.2)
[2022-01-22] MEDS: ZINC SULFATE 220mg CAP or TAB PO SCH (10:48)
[2022-01-22] MEDS: CHOLECALCIFEROL (VITD3) 2,000 UNIT CAP/TAB PO SCH (10:48)
[2022-01-22] MEDS: APIXABAN 5 MG TAB PO SCH ×2 (10:48→22:37)
[2022-01-22] MEDS: THIAMINE HCL 100 MG TAB PO SCH (10:56)
[2022-01-22] MEDS: FAMOTIDINE 20 MG TAB PO SCH ×2 (10:56→22:37)
[2022-01-22] MEDS: Ensure HIGH Protein Vanilla 8oz Bottle PO SCH ×3 (10:57→18:34)
[2022-01-22] MEDS: ASCORBIC ACID 1,000 MG TAB PO SCH ×3 (10:57→23:34)
[2022-01-22] MEDS: methylPREDNISolone SOD SUCC 40 MG/ML VL IV SCH ×2 (10:57→22:37)
[2022-01-22] MEDS: AMOXICILLIN/CLAVUL 875 MG TAB PO SCH (11:05)
[2022-01-22 13:00] VITALS: BP 112/67
[2022-01-22 17:00] VITALS: BP 110/66
[2022-01-22] MEDS: ACETAMINOPHEN 325 MG TAB PO PRN (22:37)
[2022-01-22 23:14] VITALS: BP 110/56
[2022-01-23 05:07] VITALS: BP 112/61
[2022-01-23] MEDS: BUDESONIDE (INHALATION) 180 MCG IH IN SCH (05:32)
[2022-01-23] MEDS: ALBUTEROL SULF HFA 90MCG INH 200DOSE IN PRN (05:32)
[2022-01-23] MEDS: SALINE 0.65 % NASAL SPRAY 45ML BOTTLE EACHNOSTRI SCH ×4 (06:00→22:28)
[2022-01-23 07:59] VITALS: BP 112/61
[2022-01-23] MEDS: CHOLECALCIFEROL (VITD3) 2,000 UNIT CAP/TAB PO SCH (09:06)
[2022-01-23] MEDS: THIAMINE HCL 100 MG TAB PO SCH (09:07)
[2022-01-23] MEDS: APIXABAN 5 MG TAB PO SCH ×2 (09:07→22:28)
[2022-01-23] MEDS: FAMOTIDINE 20 MG TAB PO SCH ×2 (09:07→22:28)
[2022-01-23] MEDS: methylPREDNISolone SOD SUCC 40 MG/ML VL IV SCH ×2 (09:08→22:29)
[2022-01-23] MEDS: levoFLOXacin 500 MG TAB PO SCH (09:08)
[2022-01-23] MEDS: ASCORBIC ACID 1,000 MG TAB PO SCH ×3 (09:08→23:16)
[2022-01-23] MEDS: Ensure HIGH Protein Vanilla 8oz Bottle PO SCH ×3 (09:08→18:15)
[2022-01-23] MEDS: ZINC SULFATE 220mg CAP or TAB PO SCH (09:08)
[2022-01-23 21:33] VITALS: BP 105/63
[2022-01-24] MEDS: LORazepam 2MG/ML-1ML VIAL IV PRN (01:45)
[2022-01-24 05:27] VITALS: BP 120/70
[2022-01-24] MEDS: SALINE 0.65 % NASAL SPRAY 45ML BOTTLE EACHNOSTRI SCH ×4 (06:00→21:35)
[2022-01-24] MEDS: BUDESONIDE (INHALATION) 180 MCG IH IN SCH ×2 (06:26→19:00)
[2022-01-24] MEDS: ALBUTEROL SULF HFA 90MCG INH 200DOSE IN PRN ×2 (06:27→18:59)
[2022-01-24 09:00] VITALS: BP 110/70
[2022-01-24] MEDS: ASCORBIC ACID 1,000 MG TAB PO SCH ×3 (09:00→23:57)
[2022-01-24] MEDS: Ensure HIGH Protein Vanilla 8oz Bottle PO SCH ×3 (09:01→17:44)
[2022-01-24] MEDS: levoFLOXacin 500 MG TAB PO SCH (11:27)
[2022-01-24] MEDS: APIXABAN 5 MG TAB PO SCH ×2 (11:28→21:40)
[2022-01-24] MEDS: CHOLECALCIFEROL (VITD3) 2,000 UNIT CAP/TAB PO SCH (11:28)
[2022-01-24] MEDS: DOCUSATE SOD 100 MG CAP PO PRN (11:29)
[2022-01-24] MEDS: THIAMINE HCL 100 MG TAB PO SCH (11:29)
[2022-01-24] MEDS: ZINC SULFATE 220mg CAP or TAB PO SCH (11:29)
[2022-01-24] MEDS: methylPREDNISolone SOD SUCC 40 MG/ML VL IV SCH ×2 (11:30→21:40)
[2022-01-24] MEDS: FAMOTIDINE 20 MG TAB PO SCH ×2 (11:30→21:40)
[2022-01-24 12:33] LABS: Urine Bacteria NONE SEEN /hpf (None Seen); Urine Blood Negative /uL (Negative); Urine Specific Gravity 1.026 (1.001-1.035); Urine WBC <1 /hpf (0 - 5)
[2022-01-24 13:21] VITALS: BP 102/65
[2022-01-24 17:06] VITALS: BP 110/59
[2022-01-24 21:05] VITALS: BP 103/58
[2022-01-24] MEDS: ACETAMINOPHEN 325 MG TAB PO PRN (21:53)
[2022-01-25 04:10] VITALS: BP 103/52
[2022-01-25 05:19] LABS: Basophils # (auto) 0 10 ^3/uL (0-0.2); Basophils % (auto) 0.5 % (0.0-2.0); Eosinophils # (auto) 0.1 10 ^3/uL (0-0.8); Eosinophils % (auto) 0.8 % (0.0-7.0); Hematocrit 43.1 % (36.0-46.0); Hemoglobin 14.8 g/dL (12.2-16.2); Lymphocytes # (auto) 0.4 10 ^3/uL (0.4-5.4); Lymphocytes % (auto) 4.4 % (10.0-50.0); Mean Corpuscular Hemoglobin 30.8 pg (28.0-32.0); Mean Corpuscular Hgb Conc. 34.3 g/dL (32.0-36.0); Mean Corpuscular Volume 89.8 fL (80.0-100.0); Monocytes # (auto) 0.1 10 ^3/uL (0-1.3); Monocytes % (auto) 0.7 % (0.0-12.0); Neutrophils # (auto) 8.6 10 ^3/uL (1.6-8.6); Neutrophils % (auto) 93.6 % (37.0-80.0); Nucleated Red Blood Cells % 0.1 %; Red Cell Distribution Width 13.4 % (11.8-14.3); White Blood Cell 9.2 10^3/uL (4.4-10.8)
[2022-01-25] MEDS: SALINE 0.65 % NASAL SPRAY 45ML BOTTLE EACHNOSTRI SCH ×4 (05:34→21:43)
[2022-01-25 05:37] LABS: Calcium 8.4 mg/dL (8.5-10.1); Potassium 5.3 mmol/L (3.5-5.1)
[2022-01-25 05:41] LABS: Albumin 2.4 g/dL (3.4-5.0); BUN/Creatinine Ratio 30.5
[2022-01-25 05:43] LABS: Total Protein 5.8 g/dL (6.4-8.2)
[2022-01-25] MEDS: ASCORBIC ACID 1,000 MG TAB PO SCH ×2 (08:30→16:25)
[2022-01-25] MEDS: Ensure HIGH Protein Vanilla 8oz Bottle PO SCH ×3 (08:30→18:27)
[2022-01-25 09:00] VITALS: BP 121/70
[2022-01-25] MEDS ORDERED: FUROSEMIDE 40 MG/4 ML VIAL IV ONE (09:15)
[2022-01-25] MEDS: BUDESONIDE (INHALATION) 180 MCG IH IN SCH ×2 (10:00→22:00)
[2022-01-25] MEDS: THIAMINE HCL 100 MG TAB PO SCH (10:28)
[2022-01-25] MEDS: CHOLECALCIFEROL (VITD3) 2,000 UNIT CAP/TAB PO SCH (10:29)
[2022-01-25] MEDS: DexAMETHasone 4 MG TAB PO SCH (10:29)
[2022-01-25] MEDS: APIXABAN 5 MG TAB PO SCH ×2 (10:29→21:44)
[2022-01-25] MEDS: FAMOTIDINE 20 MG TAB PO SCH ×2 (10:29→21:50)
[2022-01-25] MEDS: ZINC SULFATE 220mg CAP or TAB PO SCH (10:29)
[2022-01-25 13:00] VITALS: BP 106/57
[2022-01-25 17:00] VITALS: BP 123/75
[2022-01-25] MEDS: ALBUTEROL SULF HFA 90MCG INH 200DOSE IN PRN (19:39)
[2022-01-25 22:00] VITALS: BP 103/59
[2022-01-26] MEDS: ASCORBIC ACID 1,000 MG TAB PO SCH ×2 (00:30→08:30)
[2022-01-26 05:00] VITALS: BP 103/68
[2022-01-26 05:12] LABS: Basophils # (auto) 0 10 ^3/uL (0-0.2); Basophils % (auto) 0.1 % (0.0-2.0); Eosinophils # (auto) 0 10 ^3/uL (0-0.8); Eosinophils % (auto) 0.2 % (0.0-7.0); Hematocrit 45.7 % (36.0-46.0); Hemoglobin 15.9 g/dL (12.2-16.2); Lymphocytes # (auto) 0.9 10 ^3/uL (0.4-5.4); Lymphocytes % (auto) 8.5 % (10.0-50.0); Mean Corpuscular Hemoglobin 31.3 pg (28.0-32.0); Mean Corpuscular Hgb Conc. 34.9 g/dL (32.0-36.0); Mean Corpuscular Volume 89.8 fL (80.0-100.0); Monocytes # (auto) 0.3 10 ^3/uL (0-1.3); Monocytes % (auto) 3.2 % (0.0-12.0); Neutrophils # (auto) 8.9 10 ^3/uL (1.6-8.6); Red Blood Cells 5.09 10^6/uL (4.0-5.20); Red Cell Distribution Width 13.5 % (11.8-14.3); White Blood Cell 10.1 10^3/uL (4.4-10.8)
[2022-01-26 05:31] LABS: Albumin 2.5 g/dL (3.4-5.0); Calcium 8.8 mg/dL (8.5-10.1); INR 1.1 (0.9-1.15)
[2022-01-26 05:33] LABS: BUN/Creatinine Ratio 45.8
[2022-01-26 05:36] LABS: Bilirubin, Total 1.3 mg/dL (0.2-1.0)
[2022-01-26] MEDS: SALINE 0.65 % NASAL SPRAY 45ML BOTTLE EACHNOSTRI SCH ×4 (06:03→21:33)
[2022-01-26] MEDS: ALBUTEROL SULF HFA 90MCG INH 200DOSE IN PRN (06:37)
[2022-01-26] MEDS: BUDESONIDE (INHALATION) 180 MCG IH IN SCH ×2 (06:37→22:00)
[2022-01-26] MEDS: Ensure HIGH Protein Vanilla 8oz Bottle PO SCH ×3 (08:30→18:23)
[2022-01-26 08:43] VITALS: BP 104/64
[2022-01-26] MEDS: ZINC SULFATE 220mg CAP or TAB PO SCH (09:30)
[2022-01-26] MEDS: THIAMINE HCL 100 MG TAB PO SCH (09:30)
[2022-01-26 10:18] VITALS: BP 104/64
[2022-01-26] MEDS: CHOLECALCIFEROL (VITD3) 2,000 UNIT CAP/TAB PO SCH (10:30)
[2022-01-26] MEDS: DexAMETHasone 4 MG TAB PO SCH (10:30)
[2022-01-26] MEDS: FAMOTIDINE 20 MG TAB PO SCH (10:30)
[2022-01-26] MEDS: APIXABAN 5 MG TAB PO SCH ×2 (10:30→21:44)
[2022-01-26 13:00] VITALS: BP 100/64
[2022-01-26] MEDS: LACTULOSE 20Gm/30ML SOLN PO PRN (13:30)
[2022-01-26 17:00] VITALS: BP 100/54
[2022-01-26] MEDS: FAMOTIDINE (10MG/ML) 2ML VL IV SCH (21:44)
[2022-01-26 22:00] VITALS: BP 104/79
[2022-01-27 05:00] VITALS: BP 101/65
[2022-01-27] MEDS: SALINE 0.65 % NASAL SPRAY 45ML BOTTLE EACHNOSTRI SCH ×4 (06:05→22:05)
[2022-01-27] MEDS: Ensure HIGH Protein Vanilla 8oz Bottle PO SCH ×3 (08:00→18:00)
[2022-01-27 09:00] VITALS: BP 105/55
[2022-01-27] MEDS: FAMOTIDINE (10MG/ML) 2ML VL IV SCH ×2 (09:19→22:05)
[2022-01-27] MEDS: APIXABAN 5 MG TAB PO SCH ×2 (09:21→22:05)
[2022-01-27] MEDS: DexAMETHasone 4 MG TAB PO SCH (09:21)
[2022-01-27] MEDS: BUDESONIDE (INHALATION) 180 MCG IH IN SCH ×2 (10:21→22:00)
[2022-01-27] MEDS: ALBUTEROL SULF HFA 90MCG INH 200DOSE IN PRN (10:21)
[2022-01-27 13:00] VITALS: BP 114/70
[2022-01-27 17:00] VITALS: BP 111/78
[2022-01-27 22:00] VITALS: BP 109/58
[2022-01-28] VITALS (8 sets, daily range): BP systolic 100–135; BP diastolic 37–80
[2022-01-28 05:05] LABS: Basophils # (auto) 0 10 ^3/uL (0-0.2); Basophils % (auto) 0.2 % (0.0-2.0); Eosinophils # (auto) 0 10 ^3/uL (0-0.8); Eosinophils % (auto) 0.1 % (0.0-7.0); Hematocrit 42.6 % (36.0-46.0); Lymphocytes % (auto) 10.6 % (10.0-50.0); Mean Corpuscular Hemoglobin 31.4 pg (28.0-32.0); Mean Corpuscular Hgb Conc. 35.2 g/dL (32.0-36.0); Mean Corpuscular Volume 89.2 fL (80.0-100.0); Monocytes # (auto) 0.4 10 ^3/uL (0-1.3); Monocytes % (auto) 3.7 % (0.0-12.0); Neutrophils # (auto) 8.2 10 ^3/uL (1.6-8.6); Neutrophils % (auto) 85.4 % (37.0-80.0); Nucleated Red Blood Cells % 0.1 %; Red Blood Cells 4.78 10^6/uL (4.0-5.20); Red Cell Distribution Width 13.6 % (11.8-14.3); White Blood Cell 9.6 10^3/uL (4.4-10.8)
[2022-01-28 05:32] LABS: BUN/Creatinine Ratio 38.8; Calcium 8.5 mg/dL (8.5-10.1); Potassium 4.7 mmol/L (3.5-5.1)
[2022-01-28 05:49] LABS: INR 1.12 (0.9-1.15)
[2022-01-28] MEDS: SALINE 0.65 % NASAL SPRAY 45ML BOTTLE EACHNOSTRI SCH ×4 (06:37→21:41)
[2022-01-28] MEDS: Ensure HIGH Protein Vanilla 8oz Bottle PO SCH ×3 (08:00→18:00)
[2022-01-28] MEDS: ACETAMINOPHEN 325 MG TAB PO PRN (08:41)
[2022-01-28] MEDS: APIXABAN 5 MG TAB PO SCH ×2 (10:00→21:42)
[2022-01-28] MEDS: FAMOTIDINE (10MG/ML) 2ML VL IV SCH ×2 (10:00→21:41)
[2022-01-28] MEDS: DexAMETHasone 4 MG TAB PO SCH (10:00)
[2022-01-28] MEDS: ALBUTEROL SULF HFA 90MCG INH 200DOSE IN PRN (10:44)
[2022-01-28] MEDS: BUDESONIDE (INHALATION) 180 MCG IH IN SCH ×2 (10:44→22:00)
[2022-01-29] MEDS: ACETAMINOPHEN 325 MG TAB PO PRN (04:28)
[2022-01-29 04:38] VITALS: BP 110/64
[2022-01-29] MEDS: SALINE 0.65 % NASAL SPRAY 45ML BOTTLE EACHNOSTRI SCH ×4 (06:07→22:12)
[2022-01-29] MEDS: BUDESONIDE (INHALATION) 180 MCG IH IN SCH ×2 (08:04→18:17)
[2022-01-29] MEDS: ALBUTEROL SULF HFA 90MCG INH 200DOSE IN PRN ×2 (08:04→18:17)
[2022-01-29] MEDS: FAMOTIDINE (10MG/ML) 2ML VL IV SCH ×2 (09:58→22:12)
[2022-01-29] MEDS: APIXABAN 5 MG TAB PO SCH ×2 (09:58→22:12)
[2022-01-29] MEDS: DexAMETHasone 4 MG TAB PO SCH (09:58)
[2022-01-29 13:00] VITALS: BP 102/60
[2022-01-29] MEDS: LORazepam 2MG/ML-1ML VIAL IV PRN (13:54)
[2022-01-29 17:15] VITALS: BP 98/54
[2022-01-29 22:00] VITALS: BP 105/60
[2022-01-30] MEDS: LORazepam 2MG/ML-1ML VIAL IV PRN ×2 (00:13→08:30)
[2022-01-30 05:00] VITALS: BP 113/63
[2022-01-30] MEDS: ALBUTEROL SULF HFA 90MCG INH 200DOSE IN PRN ×2 (06:11→22:20)
[2022-01-30] MEDS: BUDESONIDE (INHALATION) 180 MCG IH IN SCH ×2 (06:11→22:20)
[2022-01-30] MEDS: SALINE 0.65 % NASAL SPRAY 45ML BOTTLE EACHNOSTRI SCH ×4 (06:18→21:53)
[2022-01-30 08:00] VITALS: BP 110/61
[2022-01-30] MEDS: DexAMETHasone 4 MG TAB PO SCH (10:28)
[2022-01-30] MEDS: FAMOTIDINE (10MG/ML) 2ML VL IV SCH ×2 (10:28→21:53)
[2022-01-30] MEDS: APIXABAN 5 MG TAB PO SCH ×2 (10:28→21:53)
[2022-01-30 12:00] VITALS: BP 93/60
[2022-01-30] MEDS ORDERED: FUROSEMIDE 20 MG/2 ML VIAL IV ONE (12:45)
[2022-01-30 17:32] VITALS: BP 125/73
[2022-01-30 22:00] VITALS: BP 112/74
[2022-01-31 05:00] VITALS: BP 114/75
[2022-01-31 05:54] LABS: Hematocrit 43.7 % (36.0-46.0); Mean Corpuscular Hemoglobin 30.8 pg (28.0-32.0); Mean Corpuscular Hgb Conc. 34.3 g/dL (32.0-36.0); Mean Corpuscular Volume 89.9 fL (80.0-100.0); Red Blood Cells 4.86 10^6/uL (4.0-5.20); Red Cell Distribution Width 13.7 % (11.8-14.3); White Blood Cell 11.1 10^3/uL (4.4-10.8)
[2022-01-31 06:03] LABS: Basophils % (manual) 0 (0.0-2.0); Blast Cells 0; Eosinophils % (manual) 0 (0-7); Metamyelocytes % 0; Promyelocytes % 0; Reactive Lymphocytes 0
[2022-01-31] MEDS: SALINE 0.65 % NASAL SPRAY 45ML BOTTLE EACHNOSTRI SCH ×4 (06:23→21:35)
[2022-01-31 06:45] LABS: Band Neutrophils % (manual) 5; Lymphocytes % (manual) 13 (10.0-50.0); Monocytes % (manual) 4 (0-12); Myelocytes % 3
[2022-01-31] MEDS: BUDESONIDE (INHALATION) 180 MCG IH IN SCH ×2 (08:04→22:00)
[2022-01-31] MEDS: ALBUTEROL SULF HFA 90MCG INH 200DOSE IN PRN (08:04)
[2022-01-31 09:00] VITALS: BP 107/62
[2022-01-31] MEDS: APIXABAN 5 MG TAB PO SCH ×2 (09:51→21:35)
[2022-01-31] MEDS: DexAMETHasone 4 MG TAB PO SCH (09:51)
[2022-01-31] MEDS: DOCUSATE SOD 100 MG CAP PO PRN (09:51)
[2022-01-31] MEDS: LORazepam 0.5 MG TAB PO PRN (09:51)
[2022-01-31] MEDS: FAMOTIDINE (10MG/ML) 2ML VL IV SCH ×2 (09:51→21:35)
[2022-01-31 13:00] VITALS: BP 97/66
[2022-01-31] MEDS ORDERED: BISACODYL 10 MG RECT SUPP PR ONE (13:45)
[2022-01-31] MEDS: LACTULOSE 20Gm/30ML SOLN PO PRN (14:21)
[2022-01-31 15:51] LABS: BUN/Creatinine Ratio 47.4; Calcium 8.4 mg/dL (8.5-10.1); Potassium 4.4 mmol/L (3.5-5.1)
[2022-01-31 17:00] VITALS: BP 104/67
[2022-01-31 22:00] VITALS: BP 103/64
[2022-02-01 05:00] VITALS: BP 110/56
[2022-02-01] MEDS: SALINE 0.65 % NASAL SPRAY 45ML BOTTLE EACHNOSTRI SCH ×4 (05:06→21:47)
[2022-02-01 09:00] VITALS: BP 118/73
[2022-02-01] MEDS: DexAMETHasone 4 MG TAB PO SCH (09:18)
[2022-02-01] MEDS: FAMOTIDINE (10MG/ML) 2ML VL IV SCH ×2 (09:18→21:47)
[2022-02-01] MEDS: APIXABAN 5 MG TAB PO SCH ×2 (09:19→21:54)
[2022-02-01 13:00] VITALS: BP 107/69
[2022-02-01 17:00] VITALS: BP 110/58
[2022-02-01 22:00] VITALS: BP 120/73
[2022-02-02 05:00] VITALS: BP 106/74
[2022-02-02] MEDS: SALINE 0.65 % NASAL SPRAY 45ML BOTTLE EACHNOSTRI SCH ×4 (06:30→22:15)
[2022-02-02] MEDS: ALBUTEROL SULF HFA 90MCG INH 200DOSE IN PRN (06:47)
[2022-02-02] MEDS: BUDESONIDE (INHALATION) 180 MCG IH IN SCH ×2 (06:47→22:00)
[2022-02-02 09:09] VITALS: BP 101/62
[2022-02-02] MEDS: DexAMETHasone 4 MG TAB PO SCH (10:55)
[2022-02-02] MEDS: APIXABAN 5 MG TAB PO SCH ×2 (10:55→22:16)
[2022-02-02] MEDS: FUROSEMIDE 20 MG TAB PO SCH (10:55)
[2022-02-02 13:00] VITALS: BP 94/65
[2022-02-02 17:00] VITALS: BP 107/68
[2022-02-02 22:00] VITALS: BP 106/71
[2022-02-03 05:00] VITALS: BP 116/61
[2022-02-03] MEDS: SALINE 0.65 % NASAL SPRAY 45ML BOTTLE EACHNOSTRI SCH ×4 (06:07→21:06)
[2022-02-03] MEDS: FUROSEMIDE 20 MG TAB PO SCH (08:58)
[2022-02-03 09:00] VITALS: BP 97/61
[2022-02-03] MEDS: DexAMETHasone 4 MG TAB PO SCH (09:05)
[2022-02-03] MEDS: APIXABAN 5 MG TAB PO SCH ×2 (09:06→21:07)
[2022-02-03] MEDS: BUDESONIDE (INHALATION) 180 MCG IH IN SCH ×2 (09:45→19:01)
[2022-02-03] MEDS: ALBUTEROL SULF HFA 90MCG INH 200DOSE IN PRN ×2 (09:45→19:00)
[2022-02-03 13:00] VITALS: BP 115/69
[2022-02-03 16:51] VITALS: BP 99/58
[2022-02-03 21:59] VITALS: BP 116/65
[2022-02-04 00:56] VITALS: BP 116/65
[2022-02-04 05:00] VITALS: BP 102/67
[2022-02-04] MEDS: SALINE 0.65 % NASAL SPRAY 45ML BOTTLE EACHNOSTRI SCH ×4 (06:27→21:33)
[2022-02-04 09:00] VITALS: BP 104/54
[2022-02-04] MEDS: APIXABAN 5 MG TAB PO SCH ×2 (09:14→21:01)
[2022-02-04] MEDS: BUDESONIDE (INHALATION) 180 MCG IH IN SCH ×2 (10:00→22:00)
[2022-02-04] MEDS: DexAMETHasone 4 MG TAB PO SCH (10:00)
[2022-02-04 13:00] VITALS: BP 110/65
[2022-02-04] MEDS: ACETAMINOPHEN 325 MG TAB PO PRN (15:32)
[2022-02-04 17:00] VITALS: BP 110/69
[2022-02-04 22:00] VITALS: BP 100/72
[2022-02-05 05:00] VITALS: BP 103/63
[2022-02-05] MEDS: SALINE 0.65 % NASAL SPRAY 45ML BOTTLE EACHNOSTRI SCH ×4 (05:34→21:25)
[2022-02-05] MEDS: BUDESONIDE (INHALATION) 180 MCG IH IN SCH (07:56)
[2022-02-05] MEDS: ALBUTEROL SULF HFA 90MCG INH 200DOSE IN PRN (07:57)
[2022-02-05 08:18] VITALS: BP 102/57
[2022-02-05] MEDS ORDERED: ALBUTEROL SULF 2.5 MG/0.5ML(0.5%) NEB SOLN NEB PRN (09:30)
[2022-02-05] MEDS: DexAMETHasone 4 MG TAB PO SCH (09:31)
[2022-02-05] MEDS: APIXABAN 5 MG TAB PO SCH ×2 (09:32→21:25)
[2022-02-05 12:54] VITALS: BP 106/62
[2022-02-05 16:53] VITALS: BP 114/63
[2022-02-05 22:01] VITALS: BP 123/60
[2022-02-06 05:00] VITALS: BP 109/60
[2022-02-06] MEDS: SALINE 0.65 % NASAL SPRAY 45ML BOTTLE EACHNOSTRI SCH ×4 (06:00→20:25)
[2022-02-06 09:16] VITALS: BP 108/68
[2022-02-06] MEDS: DexAMETHasone 4 MG TAB PO SCH (10:05)
[2022-02-06] MEDS: APIXABAN 5 MG TAB PO SCH ×2 (10:05→21:30)
[2022-02-06 13:00] VITALS: BP 105/69
[2022-02-06 17:11] VITALS: BP 112/69
[2022-02-06] MEDS: DOCUSATE SOD 100 MG CAP PO PRN (20:25)
[2022-02-06 22:00] VITALS: BP 104/73
[2022-02-07 05:00] VITALS: BP 118/70
[2022-02-07] MEDS: SALINE 0.65 % NASAL SPRAY 45ML BOTTLE EACHNOSTRI SCH ×4 (05:39→20:25)
[2022-02-07 06:30] LABS: Basophils # (auto) 0 10 ^3/uL (0-0.2); Basophils % (auto) 0.2 % (0.0-2.0); Eosinophils # (auto) 0 10 ^3/uL (0-0.8); Eosinophils % (auto) 0.5 % (0.0-7.0); Hemoglobin 13.3 g/dL (12.2-16.2); Lymphocytes # (auto) 1.1 10 ^3/uL (0.4-5.4); Lymphocytes % (auto) 13.8 % (10.0-50.0); Mean Corpuscular Hemoglobin 32.3 pg (28.0-32.0); Mean Corpuscular Hgb Conc. 36.1 g/dL (32.0-36.0); Mean Corpuscular Volume 89.5 fL (80.0-100.0); Monocytes # (auto) 0.1 10 ^3/uL (0-1.3); Monocytes % (auto) 1.7 % (0.0-12.0); Neutrophils # (auto) 6.9 10 ^3/uL (1.6-8.6); Neutrophils % (auto) 83.8 % (37.0-80.0); Nucleated Red Blood Cells % 0.2 %; Red Blood Cells 4.13 10^6/uL (4.0-5.20); White Blood Cell 8.3 10^3/uL (4.4-10.8)
[2022-02-07 06:45] LABS: Calcium 8.4 mg/dL (8.5-10.1); Potassium 3.7 mmol/L (3.5-5.1)
[2022-02-07 06:53] LABS: BUN/Creatinine Ratio 36.5; CRP High Sensitivity 3.6 mg/dL (< 0.3)
[2022-02-07 08:48] VITALS: BP 100/58
[2022-02-07] MEDS: APIXABAN 5 MG TAB PO SCH ×2 (10:14→20:26)
[2022-02-07] MEDS: methylPREDNISolone SOD SUCC 40 MG/ML VL IV SCH ×2 (10:55→20:25)
[2022-02-07 13:00] VITALS: BP 110/65
[2022-02-07] MEDS: LORazepam 0.5 MG TAB PO PRN (15:04)
[2022-02-07] MEDS: BISACODYL 10 MG RECT SUPP PR PRN (16:37)
[2022-02-07 16:42] VITALS: BP 107/68
[2022-02-07] MEDS ORDERED: LACTULOSE 20Gm/30ML SOLN PO ONE (16:45)
[2022-02-07] MEDS ORDERED: LACTULOSE 20Gm/30ML SOLN PO PRN (16:45)
[2022-02-07 21:45] VITALS: BP 104/75
[2022-02-08] MEDS: LORazepam 0.5 MG TAB PO PRN (04:31)
[2022-02-08 05:00] VITALS: BP 120/80
[2022-02-08] MEDS: SALINE 0.65 % NASAL SPRAY 45ML BOTTLE EACHNOSTRI SCH ×4 (06:48→21:01)
[2022-02-08 08:59] VITALS: BP 104/60
[2022-02-08] MEDS: APIXABAN 5 MG TAB PO SCH ×2 (09:05→21:02)
[2022-02-08] MEDS: methylPREDNISolone SOD SUCC 40 MG/ML VL IV SCH ×2 (09:05→21:02)
[2022-02-08 13:00] VITALS: BP 100/58
[2022-02-08 17:00] VITALS: BP 103/60
[2022-02-08 22:00] VITALS: BP 118/65
[2022-02-09] VITALS (7 sets, daily range): BP systolic 102–132; BP diastolic 63–82
[2022-02-09] MEDS: SALINE 0.65 % NASAL SPRAY 45ML BOTTLE EACHNOSTRI SCH ×4 (05:18→22:23)
[2022-02-09] MEDS: LORazepam 0.5 MG TAB PO PRN ×2 (09:30→20:41)
[2022-02-09] MEDS: APIXABAN 5 MG TAB PO SCH ×2 (09:40→22:20)
[2022-02-09] MEDS: methylPREDNISolone SOD SUCC 40 MG/ML VL IV SCH ×2 (09:40→22:20)
[2022-02-09] MEDS ORDERED: ALBUTEROL SULF HFA 90MCG INH 200DOSE IN PRN (11:45)
[2022-02-09] MEDS ORDERED: guaiFENesin 200 MG/10 ML UD PO PRN (13:15)
[2022-02-09] MEDS: hydrOXYzine HCL 10 MG TAB PO SCH ×2 (14:00→22:00)
[2022-02-10 04:31] VITALS: BP 106/64
[2022-02-10] MEDS: SALINE 0.65 % NASAL SPRAY 45ML BOTTLE EACHNOSTRI SCH ×4 (05:31→22:28)
[2022-02-10] MEDS: hydrOXYzine HCL 10 MG TAB PO SCH ×3 (05:32→22:27)
[2022-02-10 05:46] LABS: Basophils # (auto) 0 10 ^3/uL (0-0.2); Basophils % (auto) 0.5 % (0.0-2.0); Eosinophils # (auto) 0 10 ^3/uL (0-0.8); Hematocrit 37.9 % (36.0-46.0); Hemoglobin 13.3 g/dL (12.2-16.2); Lymphocytes % (auto) 11.2 % (10.0-50.0); Mean Corpuscular Hemoglobin 31.3 pg (28.0-32.0); Mean Corpuscular Hgb Conc. 35.2 g/dL (32.0-36.0); Mean Corpuscular Volume 89.2 fL (80.0-100.0); Monocytes # (auto) 0.2 10 ^3/uL (0-1.3); Monocytes % (auto) 2.4 % (0.0-12.0); Neutrophils % (auto) 85.9 % (37.0-80.0); Nucleated Red Blood Cells % 0.1 %; Red Blood Cells 4.25 10^6/uL (4.0-5.20); Red Cell Distribution Width 14.8 % (11.8-14.3); White Blood Cell 9.3 10^3/uL (4.4-10.8)
[2022-02-10 06:05] LABS: Potassium 4.5 mmol/L (3.5-5.1)
[2022-02-10 06:13] LABS: Albumin 2.7 g/dL (3.4-5.0); Bilirubin, Total 1.7 mg/dL (0.2-1.0); Calcium 8.5 mg/dL (8.5-10.1); Magnesium 2.8 mg/dL (1.6-2.6); Phosphorus 3.1 mg/dL (2.5-4.90); Total Protein 5.8 g/dL (6.4-8.2)
[2022-02-10 09:00] VITALS: BP 107/64
[2022-02-10] MEDS: APIXABAN 5 MG TAB PO SCH ×2 (10:56→22:27)
[2022-02-10] MEDS: methylPREDNISolone SOD SUCC 40 MG/ML VL IV SCH ×2 (10:56→22:27)
[2022-02-10 13:00] VITALS: BP 109/62
[2022-02-10] MEDS: LORazepam 0.5 MG TAB PO PRN (14:13)
[2022-02-10 17:00] VITALS: BP 102/71
[2022-02-10 22:00] VITALS: BP 107/69
[2022-02-11 05:00] VITALS: BP 107/70
[2022-02-11 05:54] LABS: Hematocrit 36.5 % (36.0-46.0); Hemoglobin 12.8 g/dL (12.2-16.2); Mean Corpuscular Hemoglobin 31.7 pg (28.0-32.0); Mean Corpuscular Hgb Conc. 35.2 g/dL (32.0-36.0); Mean Corpuscular Volume 90.1 fL (80.0-100.0); Red Blood Cells 4.06 10^6/uL (4.0-5.20); Red Cell Distribution Width 14.6 % (11.8-14.3); White Blood Cell 8.2 10^3/uL (4.4-10.8)
[2022-02-11] MEDS: SALINE 0.65 % NASAL SPRAY 45ML BOTTLE EACHNOSTRI SCH ×4 (06:14→22:05)
[2022-02-11] MEDS: hydrOXYzine HCL 10 MG TAB PO SCH ×3 (06:14→21:58)
[2022-02-11 06:27] LABS: Basophils % (manual) 0 (0.0-2.0); Blast Cells 0; Eosinophils % (manual) 0 (0-7); Myelocytes % 0; Promyelocytes % 0; Reactive Lymphocytes 0
[2022-02-11 08:00] VITALS: BP 100/63
[2022-02-11 08:47] LABS: Band Neutrophils % (manual) 3; Lymphocytes % (manual) 8 (10.0-50.0); Metamyelocytes % 1; Monocytes % (manual) 3 (0-12)
[2022-02-11] MEDS: APIXABAN 5 MG TAB PO SCH ×2 (10:07→21:58)
[2022-02-11] MEDS: methylPREDNISolone SOD SUCC 40 MG/ML VL IV SCH ×2 (10:07→21:59)
[2022-02-11 12:00] VITALS: BP 106/59
[2022-02-11 16:00] VITALS: BP 113/71
[2022-02-11 22:00] VITALS: BP 104/63
[2022-02-12 05:00] VITALS: BP 111/66
[2022-02-12] MEDS: hydrOXYzine HCL 10 MG TAB PO SCH ×3 (05:53→21:51)
[2022-02-12] MEDS: SALINE 0.65 % NASAL SPRAY 45ML BOTTLE EACHNOSTRI SCH ×5 (05:53→22:00)
[2022-02-12 08:35] VITALS: BP_SYST 110; BP_SYST 121; BP_DIAS 57; BP_DIAS 78
[2022-02-12] MEDS: methylPREDNISolone SOD SUCC 40 MG/ML VL IV SCH ×2 (09:26→21:51)
[2022-02-12] MEDS: APIXABAN 5 MG TAB PO SCH ×2 (09:26→21:51)
[2022-02-12 12:33] VITALS: BP 112/70
[2022-02-12 16:17] VITALS: BP 112/70
[2022-02-12 16:39] VITALS: BP 113/76
[2022-02-12 23:10] VITALS: BP 109/68
[2022-02-13 04:22] VITALS: BP 112/53
[2022-02-13] MEDS: hydrOXYzine HCL 10 MG TAB PO SCH ×3 (05:33→21:41)
[2022-02-13] MEDS: SALINE 0.65 % NASAL SPRAY 45ML BOTTLE EACHNOSTRI SCH ×4 (05:33→21:44)
[2022-02-13 08:45] VITALS: BP 107/68
[2022-02-13] MEDS: methylPREDNISolone SOD SUCC 40 MG/ML VL IV SCH ×2 (11:38→21:41)
[2022-02-13] MEDS: APIXABAN 5 MG TAB PO SCH ×2 (11:39→21:41)
[2022-02-13 13:00] VITALS: BP 100/69
[2022-02-13 17:00] VITALS: BP 126/76
[2022-02-13 22:00] VITALS: BP 107/57
[2022-02-14 05:00] VITALS: BP 106/73
[2022-02-14] MEDS: hydrOXYzine HCL 10 MG TAB PO SCH ×3 (05:10→22:09)
[2022-02-14] MEDS: SALINE 0.65 % NASAL SPRAY 45ML BOTTLE EACHNOSTRI SCH ×4 (05:10→22:09)
[2022-02-14 08:35] VITALS: BP 108/69
[2022-02-14] MEDS: APIXABAN 5 MG TAB PO SCH ×2 (10:07→22:09)
[2022-02-14] MEDS: methylPREDNISolone SOD SUCC 40 MG/ML VL IV SCH ×2 (10:07→22:09)
[2022-02-14 13:00] VITALS: BP 116/71
[2022-02-14] MEDS ORDERED: FUROSEMIDE 20 MG TAB PO ONE (14:30)
[2022-02-14 17:33] VITALS: BP 133/67
[2022-02-14 22:00] VITALS: BP 99/60
[2022-02-14] MEDS: ACETAMINOPHEN 325 MG TAB PO PRN (23:04)
[2022-02-15 05:00] VITALS: BP 128/65
[2022-02-15] MEDS: SALINE 0.65 % NASAL SPRAY 45ML BOTTLE EACHNOSTRI SCH ×4 (06:06→21:48)
[2022-02-15] MEDS: hydrOXYzine HCL 10 MG TAB PO SCH ×3 (06:06→21:48)
[2022-02-15] MEDS: ACETAMINOPHEN 325 MG TAB PO PRN (08:29)
[2022-02-15 09:00] VITALS: BP 121/71
[2022-02-15] MEDS: methylPREDNISolone SOD SUCC 40 MG/ML VL IV SCH (10:22)
[2022-02-15] MEDS: CITALOPRAM HYDROBR 20 MG TAB PO SCH (10:23)
[2022-02-15] MEDS: APIXABAN 5 MG TAB PO SCH (10:23)
[2022-02-15] MEDS: ALBUTEROL SULF 2.5 MG/0.5ML(0.5%) NEB SOLN NEB PRN (12:23)
[2022-02-15 12:35] VITALS: BP 121/71
[2022-02-15 13:00] VITALS: BP 129/72
[2022-02-15 16:36] VITALS: BP 104/59
[2022-02-15 22:59] VITALS: BP 114/66
[2022-02-16 05:12] VITALS: BP 114/62
[2022-02-16] MEDS: hydrOXYzine HCL 10 MG TAB PO SCH ×3 (05:58→22:00)
[2022-02-16] MEDS: SALINE 0.65 % NASAL SPRAY 45ML BOTTLE EACHNOSTRI SCH ×4 (05:58→22:24)
[2022-02-16 08:55] VITALS: BP 107/67
[2022-02-16] MEDS: CITALOPRAM HYDROBR 20 MG TAB PO SCH (09:58)
[2022-02-16 10:40] LABS: Basophils # (auto) 0 10 ^3/uL (0-0.2); Basophils % (auto) 0.4 % (0.0-2.0); Eosinophils # (auto) 0.1 10 ^3/uL (0-0.8); Hematocrit 38.5 % (36.0-46.0); Hemoglobin 13.5 g/dL (12.2-16.2); Lymphocytes # (auto) 1.5 10 ^3/uL (0.4-5.4); Lymphocytes % (auto) 19.1 % (10.0-50.0); Mean Corpuscular Hemoglobin 31.6 pg (28.0-32.0); Mean Corpuscular Volume 90.3 fL (80.0-100.0); Monocytes # (auto) 0.1 10 ^3/uL (0-1.3); Monocytes % (auto) 1.6 % (0.0-12.0); Neutrophils # (auto) 5.9 10 ^3/uL (1.6-8.6); Neutrophils % (auto) 77.9 % (37.0-80.0); Nucleated Red Blood Cells % 0.3 %; Red Blood Cells 4.26 10^6/uL (4.0-5.20); Red Cell Distribution Width 15.6 % (11.8-14.3); White Blood Cell 7.6 10^3/uL (4.4-10.8)
[2022-02-16 10:59] LABS: BUN/Creatinine Ratio 55.3; Calcium 8.5 mg/dL (8.5-10.1); Potassium 3.5 mmol/L (3.5-5.1)
[2022-02-16 13:00] VITALS: BP 107/68
[2022-02-16] MEDS ORDERED: FLEET ENEMA(ADULT) 135 ML PR ONE (13:00)
[2022-02-16 16:38] VITALS: BP 107/69
[2022-02-16 22:00] VITALS: BP 123/80
[2022-02-17 05:00] VITALS: BP 99/60
[2022-02-17] MEDS: SALINE 0.65 % NASAL SPRAY 45ML BOTTLE EACHNOSTRI SCH ×4 (06:00→23:54)
[2022-02-17] MEDS: hydrOXYzine HCL 10 MG TAB PO SCH ×3 (06:00→22:00)
[2022-02-17 09:06] VITALS: BP 100/46
[2022-02-17] MEDS: CITALOPRAM HYDROBR 20 MG TAB PO SCH (10:09)
[2022-02-17] MEDS ORDERED: ENOXAPARIN SOD 40 MG/0.4 ML SYRINGE SC ONE (10:30)
[2022-02-17 13:00] VITALS: BP 104/60
[2022-02-17] MEDS ORDERED: IOHEXOL 350 MG/ML 100ML IJ ONE (14:15)
[2022-02-17 16:40] VITALS: BP 99/59
[2022-02-17 22:00] VITALS: BP 90/58
[2022-02-18] MEDS: LORazepam 0.5 MG TAB PO PRN (01:34)
[2022-02-18 05:00] VITALS: BP 101/58
[2022-02-18] MEDS: SALINE 0.65 % NASAL SPRAY 45ML BOTTLE EACHNOSTRI SCH ×4 (06:22→22:13)
[2022-02-18] MEDS: hydrOXYzine HCL 10 MG TAB PO SCH ×3 (06:23→22:12)
[2022-02-18 08:28] VITALS: BP 110/62
[2022-02-18] MEDS: ONDANSETRON HCL 4 MG/2 ML VIAL IV PRN (09:10)
[2022-02-18] MEDS: CITALOPRAM HYDROBR 20 MG TAB PO SCH (09:30)
[2022-02-18] MEDS: ENOXAPARIN SOD 40 MG/0.4 ML SYRINGE SC SCH (09:30)
[2022-02-18 12:04] VITALS: BP 101/59
[2022-02-18] MEDS: IPRATROPIUM BROM 0.5 MG/2.5ML INH SOL NEB PRN (20:30)
[2022-02-18] MEDS: ALBUTEROL SULF 2.5 MG/0.5ML(0.5%) NEB SOLN NEB PRN (20:30)
[2022-02-18 22:00] VITALS: BP 90/52
[2022-02-19] MEDS ORDERED: VANCOMYCIN PER PHARMACY 0 MG IV SCH
[2022-02-19] MEDS ORDERED: VANCOMYCIN 1GM/250ML 250 ML IV ONE (00:30)
[2022-02-19 04:40] VITALS: BP 109/61
[2022-02-19 05:58] LABS: BUN/Creatinine Ratio 53.6; Potassium 3.3 mmol/L (3.5-5.1)
[2022-02-19 05:59] LABS: Magnesium 2.3 mg/dL (1.6-2.6)
[2022-02-19] MEDS: hydrOXYzine HCL 10 MG TAB PO SCH ×3 (06:00→21:41)
[2022-02-19] MEDS: SALINE 0.65 % NASAL SPRAY 45ML BOTTLE EACHNOSTRI SCH ×4 (06:46→21:41)
[2022-02-19 09:23] VITALS: BP 91/55
[2022-02-19] MEDS: CITALOPRAM HYDROBR 20 MG TAB PO SCH (09:48)
[2022-02-19] MEDS: ENOXAPARIN SOD 40 MG/0.4 ML SYRINGE SC SCH (09:49)
[2022-02-19] MEDS ORDERED: POTASSIUM CHL 20 Meq TABLET PO ONE (10:30)
[2022-02-19] MEDS ORDERED: predniSONE 20 MG TAB PO ONE (10:30)
[2022-02-19] MEDS ORDERED: levoFLOXacin 500 MG TAB PO ONE (10:30)
[2022-02-19 13:04] VITALS: BP 110/56
[2022-02-19 16:46] VITALS: BP 79/44
[2022-02-19 21:30] VITALS: BP 104/48
[2022-02-19] MEDS: APIXABAN 5 MG TAB PO SCH (21:41)
[2022-02-20] MEDS ORDERED: VANCOMYCIN 1GM/250ML 250 ML IV SCH (02:00)
[2022-02-20 05:00] VITALS: BP 126/76
[2022-02-20] MEDS: hydrOXYzine HCL 10 MG TAB PO SCH (05:38)
[2022-02-20] MEDS: SALINE 0.65 % NASAL SPRAY 45ML BOTTLE EACHNOSTRI SCH ×4 (05:38→21:06)
[2022-02-20 08:38] VITALS: BP 100/56
[2022-02-20] MEDS ORDERED: FUROSEMIDE 20 MG/2 ML VIAL IV ONE (08:45)
[2022-02-20] MEDS ORDERED: hydrOXYzine HCL 10 MG TAB PO PRN (10:00)
[2022-02-20] MEDS ORDERED: FUROSEMIDE 20 MG TAB PO ONE (10:00)
[2022-02-20] MEDS: APIXABAN 5 MG TAB PO SCH ×2 (10:00→21:06)
[2022-02-20] MEDS: predniSONE 20 MG TAB PO SCH (10:00)
[2022-02-20] MEDS: CITALOPRAM HYDROBR 20 MG TAB PO SCH (10:00)
[2022-02-20] MEDS: levoFLOXacin 500 MG TAB PO SCH (10:00)
[2022-02-20] MEDS ORDERED: POTASSIUM CHL 20 Meq TABLET PO ONE (10:00)
[2022-02-20 12:56] VITALS: BP 99/57
[2022-02-20 16:52] VITALS: BP 103/66
[2022-02-20] MEDS: LORazepam 0.5 MG TAB PO PRN (21:06)
[2022-02-20 22:03] VITALS: BP 107/70
[2022-02-21 05:00] VITALS: BP 118/77
[2022-02-21] MEDS: SALINE 0.65 % NASAL SPRAY 45ML BOTTLE EACHNOSTRI SCH ×4 (05:14→21:41)
[2022-02-21 05:48] LABS: Hematocrit 29.4 % (36.0-46.0); Hemoglobin 10.5 g/dL (12.2-16.2); Mean Corpuscular Hemoglobin 32.2 pg (28.0-32.0); Mean Corpuscular Hgb Conc. 35.7 g/dL (32.0-36.0); Mean Corpuscular Volume 90.2 fL (80.0-100.0); Red Blood Cells 3.26 10^6/uL (4.0-5.20); Red Cell Distribution Width 16.4 % (11.8-14.3); White Blood Cell 5.5 10^3/uL (4.4-10.8)
[2022-02-21 05:54] LABS: Basophils % (manual) 0 (0.0-2.0); Blast Cells 0; Calcium 8.3 mg/dL (8.5-10.1); Eosinophils % (manual) 0 (0-7); Myelocytes % 0; Potassium 3.5 mmol/L (3.5-5.1); Promyelocytes % 0; Reactive Lymphocytes 0
[2022-02-21 05:58] LABS: BUN/Creatinine Ratio 43.2
[2022-02-21 08:00] LABS: Band Neutrophils % (manual) 7; Lymphocytes % (manual) 22 (10.0-50.0); Metamyelocytes % 1; Monocytes % (manual) 7 (0-12)
[2022-02-21 08:30] VITALS: BP 120/67
[2022-02-21 09:45] VITALS: BP 120/67
[2022-02-21] MEDS: predniSONE 20 MG TAB PO SCH (10:00)
[2022-02-21] MEDS: APIXABAN 5 MG TAB PO SCH ×2 (10:00→21:41)
[2022-02-21] MEDS: levoFLOXacin 500 MG TAB PO SCH (10:00)
[2022-02-21] MEDS: CITALOPRAM HYDROBR 20 MG TAB PO SCH (10:00)
[2022-02-21] MEDS ORDERED: TEMAZEPAM 15 MG CAP PO PRN (11:45)
[2022-02-21 12:30] VITALS: BP 108/60
[2022-02-21] MEDS: LORazepam 0.5 MG TAB PO PRN (14:32)
[2022-02-21 16:30] VITALS: BP 106/63
[2022-02-21 22:00] VITALS: BP 117/66
[2022-02-22 05:00] VITALS: BP 102/62
[2022-02-22] MEDS: SALINE 0.65 % NASAL SPRAY 45ML BOTTLE EACHNOSTRI SCH ×2 (06:26→22:00)
[2022-02-22 09:02] VITALS: BP 100/62
[2022-02-22] MEDS: predniSONE 20 MG TAB PO SCH (09:06)
[2022-02-22] MEDS: CITALOPRAM HYDROBR 20 MG TAB PO SCH (09:06)
[2022-02-22] MEDS: APIXABAN 5 MG TAB PO SCH ×2 (09:07→22:00)
[2022-02-22] MEDS: levoFLOXacin 500 MG TAB PO SCH (09:07)
[2022-02-22 13:00] VITALS: BP 97/56
[2022-02-22 16:54] VITALS: BP 102/66
[2022-02-22] MEDS: IPRATROPIUM BROM 0.5 MG/2.5ML INH SOL NEB PRN (19:50)
[2022-02-22] MEDS: ALBUTEROL SULF 2.5 MG/0.5ML(0.5%) NEB SOLN NEB PRN (19:50)
[2022-02-22] MEDS: LORazepam 0.5 MG TAB PO PRN (20:24)
[2022-02-22 21:30] VITALS: BP 101/63
[2022-02-23 05:00] VITALS: BP 120/72
[2022-02-23] MEDS: SALINE 0.65 % NASAL SPRAY 45ML BOTTLE EACHNOSTRI SCH ×4 (06:29→22:00)
[2022-02-23] MEDS: IPRATROPIUM BROM 0.5 MG/2.5ML INH SOL NEB PRN ×2 (07:14→16:17)
[2022-02-23] MEDS: ALBUTEROL SULF 2.5 MG/0.5ML(0.5%) NEB SOLN NEB PRN ×2 (07:14→16:17)
[2022-02-23 08:31] VITALS: BP 115/67
[2022-02-23] MEDS: ONDANSETRON HCL 4 MG/2 ML VIAL IV PRN (09:50)
[2022-02-23] MEDS: APIXABAN 5 MG TAB PO SCH ×2 (10:03→22:00)
[2022-02-23] MEDS: levoFLOXacin 500 MG TAB PO SCH (10:03)
[2022-02-23] MEDS: CITALOPRAM HYDROBR 20 MG TAB PO SCH (10:03)
[2022-02-23] MEDS: predniSONE 20 MG TAB PO SCH (10:04)
[2022-02-23 13:00] VITALS: BP 96/62
[2022-02-23 16:36] VITALS: BP 111/60
[2022-02-23 22:00] VITALS: BP 105/69
[2022-02-24 05:00] VITALS: BP 102/60
[2022-02-24] MEDS: SALINE 0.65 % NASAL SPRAY 45ML BOTTLE EACHNOSTRI SCH ×4 (06:00→21:43)
[2022-02-24 08:00] VITALS: BP 112/58
[2022-02-24] MEDS: APIXABAN 5 MG TAB PO SCH ×2 (09:59→21:36)
[2022-02-24] MEDS: predniSONE 20 MG TAB PO SCH (09:59)
[2022-02-24] MEDS: DOCUSATE SOD 100 MG CAP PO PRN (10:00)
[2022-02-24] MEDS: CITALOPRAM HYDROBR 20 MG TAB PO SCH (10:00)
[2022-02-24] MEDS: levoFLOXacin 500 MG TAB PO SCH (10:00)
[2022-02-24 11:20] VITALS: BP 112/58
[2022-02-24 12:00] VITALS: BP 103/53
[2022-02-24] MEDS: LORazepam 0.5 MG TAB PO PRN (15:17)
[2022-02-24 16:00] VITALS: BP 120/68
[2022-02-24 22:00] VITALS: BP 108/60
[2022-02-25 05:00] VITALS: BP 113/57
[2022-02-25 06:05] LABS: Potassium 3.6 mmol/L (3.5-5.1)
[2022-02-25] MEDS: SALINE 0.65 % NASAL SPRAY 45ML BOTTLE EACHNOSTRI SCH ×4 (06:06→22:11)
[2022-02-25 06:08] LABS: Basophils # (auto) 0 10 ^3/uL (0-0.2); Basophils % (auto) 0.4 % (0.0-2.0); Eosinophils # (auto) 0 10 ^3/uL (0-0.8); Eosinophils % (auto) 0.4 % (0.0-7.0); Hematocrit 31.8 % (36.0-46.0); Hemoglobin 10.9 g/dL (12.2-16.2); Lymphocytes # (auto) 2.2 10 ^3/uL (0.4-5.4); Lymphocytes % (auto) 30.7 % (10.0-50.0); Mean Corpuscular Hemoglobin 31.8 pg (28.0-32.0); Mean Corpuscular Hgb Conc. 34.4 g/dL (32.0-36.0); Mean Corpuscular Volume 92.5 fL (80.0-100.0); Monocytes # (auto) 0.2 10 ^3/uL (0-1.3); Monocytes % (auto) 2.8 % (0.0-12.0); Neutrophils # (auto) 4.7 10 ^3/uL (1.6-8.6); Neutrophils % (auto) 65.7 % (37.0-80.0); Nucleated Red Blood Cells % 0.4 %; Red Blood Cells 3.43 10^6/uL (4.0-5.20); White Blood Cell 7.2 10^3/uL (4.4-10.8)
[2022-02-25 06:10] LABS: BUN/Creatinine Ratio 55.6; Calcium 8.3 mg/dL (8.5-10.1)
[2022-02-25 09:00] VITALS: BP 100/70
[2022-02-25] MEDS: predniSONE 20 MG TAB PO SCH (09:48)
[2022-02-25] MEDS: APIXABAN 5 MG TAB PO SCH ×2 (09:48→22:11)
[2022-02-25] MEDS: levoFLOXacin 500 MG TAB PO SCH (09:48)
[2022-02-25] MEDS: CITALOPRAM HYDROBR 20 MG TAB PO SCH (09:48)
[2022-02-25] MEDS: DOCUSATE SOD 100 MG CAP PO PRN (09:50)
[2022-02-25 13:00] VITALS: BP 102/64
[2022-02-25 16:54] VITALS: BP 105/74
[2022-02-25 22:00] VITALS: BP 107/67
[2022-02-26 05:00] VITALS: BP 110/62
[2022-02-26 06:23] LABS: Hematocrit 30.8 % (36.0-46.0); Hemoglobin 10.8 g/dL (12.2-16.2); Mean Corpuscular Hemoglobin 32.3 pg (28.0-32.0); Mean Corpuscular Hgb Conc. 35.1 g/dL (32.0-36.0); Mean Corpuscular Volume 92.1 fL (80.0-100.0); Red Blood Cells 3.34 10^6/uL (4.0-5.20); Red Cell Distribution Width 17.7 % (11.8-14.3); White Blood Cell 6.6 10^3/uL (4.4-10.8)
[2022-02-26] MEDS: SALINE 0.65 % NASAL SPRAY 45ML BOTTLE EACHNOSTRI SCH ×4 (06:31→22:26)
[2022-02-26 06:33] LABS: Calcium 8.3 mg/dL (8.5-10.1); Potassium 3.6 mmol/L (3.5-5.1)
[2022-02-26 06:36] LABS: BUN/Creatinine Ratio 56.3
[2022-02-26 07:01] LABS: Basophils % (manual) 0 (0.0-2.0); Blast Cells 0; Metamyelocytes % 0; Myelocytes % 0; Promyelocytes % 0; Reactive Lymphocytes 0
[2022-02-26 09:00] VITALS: BP 96/54
[2022-02-26] MEDS: APIXABAN 5 MG TAB PO SCH ×2 (09:01→22:26)
[2022-02-26] MEDS: predniSONE 20 MG TAB PO SCH (09:01)
[2022-02-26] MEDS: CITALOPRAM HYDROBR 20 MG TAB PO SCH (09:01)
[2022-02-26] MEDS: levoFLOXacin 500 MG TAB PO SCH (09:02)
[2022-02-26] MEDS ORDERED: POTASSIUM CHL 20 Meq TABLET PO ONE (11:30)
[2022-02-26] MEDS ORDERED: FUROSEMIDE 20 MG TAB PO ONE (11:30)
[2022-02-26 13:00] VITALS: BP 92/51
[2022-02-26 13:30] LABS: Band Neutrophils % (manual) 4; Eosinophils % (manual) 1 (0-7); Lymphocytes % (manual) 25 (10.0-50.0); Monocytes % (manual) 5 (0-12)
[2022-02-26 15:29] VITALS: BP 105/54
[2022-02-26] MEDS: BISACODYL 10 MG RECT SUPP PR PRN (15:51)
[2022-02-26 16:46] VITALS: BP 107/55
[2022-02-26 22:00] VITALS: BP 104/62
[2022-02-27 05:00] VITALS: BP 110/59
[2022-02-27] MEDS: SALINE 0.65 % NASAL SPRAY 45ML BOTTLE EACHNOSTRI SCH ×3 (06:12→22:08)
[2022-02-27 08:00] VITALS: BP 100/48
[2022-02-27] MEDS: CITALOPRAM HYDROBR 20 MG TAB PO SCH (09:43)
[2022-02-27] MEDS: predniSONE 20 MG TAB PO SCH (09:43)
[2022-02-27] MEDS: APIXABAN 5 MG TAB PO SCH ×2 (09:44→22:08)
[2022-02-27] MEDS: levoFLOXacin 500 MG TAB PO SCH (09:44)
[2022-02-27 12:00] VITALS: BP 100/65
[2022-02-27 16:00] VITALS: BP 102/54
[2022-02-27 22:00] VITALS: BP 100/55
[2022-02-28 05:00] VITALS: BP 114/76
[2022-02-28] MEDS: SALINE 0.65 % NASAL SPRAY 45ML BOTTLE EACHNOSTRI SCH ×4 (05:26→22:00)
[2022-02-28 09:00] VITALS: BP 100/61
[2022-02-28] MEDS: levoFLOXacin 500 MG TAB PO SCH (10:15)
[2022-02-28] MEDS: CITALOPRAM HYDROBR 20 MG TAB PO SCH (10:15)
[2022-02-28] MEDS: APIXABAN 5 MG TAB PO SCH ×2 (10:15→22:54)
[2022-02-28] MEDS: predniSONE 20 MG TAB PO SCH (10:15)
[2022-02-28 13:00] VITALS: BP 98/57
[2022-02-28 17:00] VITALS: BP 119/75
[2022-02-28 22:00] VITALS: BP 100/59
[2022-03-01 05:00] VITALS: BP 109/53
[2022-03-01] MEDS: SALINE 0.65 % NASAL SPRAY 45ML BOTTLE EACHNOSTRI SCH ×4 (06:00→22:00)
[2022-03-01 09:00] VITALS: BP 111/66
[2022-03-01] MEDS: predniSONE 20 MG TAB PO SCH (10:00)
[2022-03-01] MEDS: APIXABAN 5 MG TAB PO SCH ×2 (10:00→22:51)
[2022-03-01] MEDS: CITALOPRAM HYDROBR 20 MG TAB PO SCH (10:00)
[2022-03-01] MEDS: levoFLOXacin 500 MG TAB PO SCH (10:00)
[2022-03-01 13:00] VITALS: BP 100/62
[2022-03-01 16:54] VITALS: BP 97/65
[2022-03-01 22:00] VITALS: BP 102/59
[2022-03-02 05:00] VITALS: BP 112/54
[2022-03-02] MEDS: SALINE 0.65 % NASAL SPRAY 45ML BOTTLE EACHNOSTRI SCH ×4 (06:00→21:40)
[2022-03-02 09:00] VITALS: BP 104/62
[2022-03-02] MEDS: CITALOPRAM HYDROBR 20 MG TAB PO SCH (09:04)
[2022-03-02] MEDS: levoFLOXacin 500 MG TAB PO SCH (09:05)
[2022-03-02] MEDS: predniSONE 20 MG TAB PO SCH (09:05)
[2022-03-02] MEDS: APIXABAN 5 MG TAB PO SCH ×2 (09:05→21:45)
[2022-03-02] MEDS ORDERED: FUROSEMIDE 20 MG TAB PO ONE (11:00)
[2022-03-02] MEDS ORDERED: POTASSIUM CHL 10 Meq TABLET PO ONE (11:00)
[2022-03-02] MEDS: DOCUSATE SOD 100 MG CAP PO PRN (12:10)
[2022-03-02 13:00] VITALS: BP 90/57
[2022-03-02 17:00] VITALS: BP 98/60
[2022-03-02 21:52] VITALS: BP 123/62
[2022-03-03 05:10] VITALS: BP 105/53
[2022-03-03] MEDS: SALINE 0.65 % NASAL SPRAY 45ML BOTTLE EACHNOSTRI SCH ×4 (05:48→21:49)
[2022-03-03 08:46] VITALS: BP 107/52
[2022-03-03] MEDS: CITALOPRAM HYDROBR 20 MG TAB PO SCH (09:39)
[2022-03-03] MEDS: levoFLOXacin 500 MG TAB PO SCH (09:39)
[2022-03-03] MEDS: predniSONE 20 MG TAB PO SCH (09:39)
[2022-03-03] MEDS: APIXABAN 5 MG TAB PO SCH ×2 (09:39→21:49)
[2022-03-03 12:53] VITALS: BP 95/58
[2022-03-03 17:00] VITALS: BP 114/64
[2022-03-03 22:00] VITALS: BP 100/60
[2022-03-04 04:01] VITALS: BP 94/56
[2022-03-04] MEDS: SALINE 0.65 % NASAL SPRAY 45ML BOTTLE EACHNOSTRI SCH ×4 (05:53→21:45)
[2022-03-04] MEDS: predniSONE 20 MG TAB PO SCH (09:17)
[2022-03-04] MEDS: levoFLOXacin 500 MG TAB PO SCH (09:17)
[2022-03-04] MEDS: APIXABAN 5 MG TAB PO SCH ×2 (09:17→21:44)
[2022-03-04] MEDS: CITALOPRAM HYDROBR 20 MG TAB PO SCH (09:18)
[2022-03-04 19:28] LABS: Urine Bacteria FEW /hpf (None Seen); Urine Blood 3+ /uL (Negative); Urine Mucus FEW (None Seen); Urine Specific Gravity 1.022 (1.001-1.035); Urine WBC 263 /hpf (0 - 5); Urine WBC Clumps PRESENT /hpf (None Seen)
[2022-03-04 21:51] VITALS: BP 94/46
[2022-03-05 04:38] VITALS: BP 96/63
[2022-03-05] MEDS: SALINE 0.65 % NASAL SPRAY 45ML BOTTLE EACHNOSTRI SCH ×4 (05:37→22:00)
[2022-03-05 09:00] VITALS: BP 102/64
[2022-03-05] MEDS: levoFLOXacin 500 MG TAB PO SCH (09:47)
[2022-03-05] MEDS: APIXABAN 5 MG TAB PO SCH ×2 (09:47→22:44)
[2022-03-05] MEDS: CITALOPRAM HYDROBR 20 MG TAB PO SCH (09:47)
[2022-03-05] MEDS: predniSONE 20 MG TAB PO SCH (09:47)
[2022-03-05] MEDS: DOCUSATE SOD 100 MG CAP PO PRN (09:49)
[2022-03-05] MEDS ORDERED: CEFUROXIME 250 MG TAB PO ONE (11:15)
[2022-03-05 13:17] VITALS: BP 107/64
[2022-03-05 14:00] VITALS: BP 101/57
[2022-03-05 17:02] VITALS: BP 101/57
[2022-03-05 22:00] VITALS: BP 114/67
[2022-03-05] MEDS: CEFUROXIME 250 MG TAB PO SCH (22:44)
[2022-03-06 05:00] VITALS: BP 113/67
[2022-03-06] MEDS: SALINE 0.65 % NASAL SPRAY 45ML BOTTLE EACHNOSTRI SCH ×4 (05:59→21:41)
[2022-03-06] MEDS: APIXABAN 5 MG TAB PO SCH ×2 (08:23→21:41)
[2022-03-06] MEDS: predniSONE 20 MG TAB PO SCH (08:23)
[2022-03-06] MEDS: CITALOPRAM HYDROBR 20 MG TAB PO SCH (08:23)
[2022-03-06] MEDS: CEFUROXIME 250 MG TAB PO SCH ×2 (08:24→21:41)
[2022-03-06 08:39] VITALS: BP 113/65
[2022-03-06 12:35] VITALS: BP 110/66
[2022-03-06 16:48] VITALS: BP 109/58
[2022-03-06 22:00] VITALS: BP 107/72
[2022-03-07 05:00] VITALS: BP 96/48
[2022-03-07] MEDS: SALINE 0.65 % NASAL SPRAY 45ML BOTTLE EACHNOSTRI SCH ×4 (06:45→22:00)
[2022-03-07 08:54] VITALS: BP 96/58
[2022-03-07] MEDS: CITALOPRAM HYDROBR 20 MG TAB PO SCH (10:30)
[2022-03-07] MEDS: CEFUROXIME 250 MG TAB PO SCH ×2 (10:31→22:03)
[2022-03-07] MEDS: APIXABAN 5 MG TAB PO SCH ×2 (10:31→22:03)
[2022-03-07] MEDS: DOCUSATE SOD 100 MG CAP PO PRN (11:03)
[2022-03-07 13:26] VITALS: BP 110/57
[2022-03-07 16:53] VITALS: BP 101/52
[2022-03-07 22:00] VITALS: BP 103/58
[2022-03-07] MEDS: predniSONE 20 MG TAB PO SCH (22:02)
[2022-03-08 05:00] VITALS: BP 126/72
[2022-03-08] MEDS: SALINE 0.65 % NASAL SPRAY 45ML BOTTLE EACHNOSTRI SCH ×4 (06:39→22:00)
[2022-03-08 09:00] VITALS: BP 115/61
[2022-03-08] MEDS: APIXABAN 5 MG TAB PO SCH ×2 (09:14→22:46)
[2022-03-08] MEDS: predniSONE 20 MG TAB PO SCH ×2 (09:14→22:45)
[2022-03-08] MEDS: CITALOPRAM HYDROBR 20 MG TAB PO SCH (09:14)
[2022-03-08] MEDS: CEFUROXIME 250 MG TAB PO SCH ×2 (09:15→22:46)
[2022-03-08 13:00] VITALS: BP 113/75
[2022-03-08 17:00] VITALS: BP 111/61
[2022-03-08 22:00] VITALS: BP 102/54
[2022-03-09 05:00] VITALS: BP 100/62
[2022-03-09] MEDS: SALINE 0.65 % NASAL SPRAY 45ML BOTTLE EACHNOSTRI SCH ×4 (06:44→22:00)
[2022-03-09 09:00] VITALS: BP 103/59
[2022-03-09] MEDS: predniSONE 20 MG TAB PO SCH ×2 (09:42→22:39)
[2022-03-09] MEDS: APIXABAN 5 MG TAB PO SCH ×2 (09:42→22:40)
[2022-03-09] MEDS: CITALOPRAM HYDROBR 20 MG TAB PO SCH (09:42)
[2022-03-09] MEDS: CEFUROXIME 250 MG TAB PO SCH ×2 (09:43→22:40)
[2022-03-09 12:43] VITALS: BP 98/57
[2022-03-09 16:33] VITALS: BP 105/57
[2022-03-09 22:00] VITALS: BP 93/49
[2022-03-10 05:00] VITALS: BP 114/68
[2022-03-10] MEDS: SALINE 0.65 % NASAL SPRAY 45ML BOTTLE EACHNOSTRI SCH ×4 (06:00→22:00)
[2022-03-10 09:00] VITALS: BP 100/57
[2022-03-10] MEDS: CEFUROXIME 250 MG TAB PO SCH ×2 (10:00→22:00)
[2022-03-10] MEDS: CITALOPRAM HYDROBR 20 MG TAB PO SCH (10:01)
[2022-03-10] MEDS: APIXABAN 5 MG TAB PO SCH ×2 (10:01→22:00)
[2022-03-10] MEDS: predniSONE 20 MG TAB PO SCH ×2 (10:01→22:00)
[2022-03-10 12:35] VITALS: BP 101/64
[2022-03-10 17:00] VITALS: BP 101/62
[2022-03-10 22:00] VITALS: BP 118/66
[2022-03-11 05:00] VITALS: BP 100/52
[2022-03-11 05:19] LABS: Basophils # (auto) 0 10 ^3/uL (0-0.2); Basophils % (auto) 0.3 % (0.0-2.0); Eosinophils # (auto) 0 10 ^3/uL (0-0.8); Eosinophils % (auto) 0.5 % (0.0-7.0); Hematocrit 31.1 % (36.0-46.0); Hemoglobin 10.4 g/dL (12.2-16.2); Lymphocytes # (auto) 2.2 10 ^3/uL (0.4-5.4); Lymphocytes % (auto) 29.7 % (10.0-50.0); Mean Corpuscular Hemoglobin 31.8 pg (28.0-32.0); Mean Corpuscular Hgb Conc. 33.5 g/dL (32.0-36.0); Monocytes # (auto) 0.2 10 ^3/uL (0-1.3); Monocytes % (auto) 3.1 % (0.0-12.0); Neutrophils # (auto) 4.9 10 ^3/uL (1.6-8.6); Neutrophils % (auto) 66.4 % (37.0-80.0); Nucleated Red Blood Cells % 0.3 %; Red Blood Cells 3.27 10^6/uL (4.0-5.20); Red Cell Distribution Width 18.2 % (11.8-14.3); White Blood Cell 7.4 10^3/uL (4.4-10.8)
[2022-03-11 05:32] LABS: Albumin 2.5 g/dL (3.4-5.0); Calcium 8.3 mg/dL (8.5-10.1); Potassium 4.1 mmol/L (3.5-5.1)
[2022-03-11 05:34] LABS: BUN/Creatinine Ratio 44.4
[2022-03-11 05:36] LABS: Total Protein 5.9 g/dL (6.4-8.2)
[2022-03-11 08:39] VITALS: BP 117/54
[2022-03-11] MEDS: predniSONE 20 MG TAB PO SCH (09:51)
[2022-03-11] MEDS: APIXABAN 5 MG TAB PO SCH (09:51)
[2022-03-11] MEDS: CITALOPRAM HYDROBR 20 MG TAB PO SCH (09:51)
[2022-03-11] MEDS: CEFUROXIME 250 MG TAB PO SCH (09:52)
[2022-03-11] MEDS: SALINE 0.65 % NASAL SPRAY 45ML BOTTLE EACHNOSTRI SCH ×2 (12:00→18:00)
[2022-03-11 13:00] VITALS: BP 121/58
[2022-03-11 17:11] VITALS: BP 105/53
[2022-03-11 21:44] VITALS: BP 102/59
[2022-03-11 22:00] VITALS: BP 99/67
[2022-03-12] MEDS: APIXABAN 5 MG TAB PO SCH ×3 (00:24→22:03)
[2022-03-12] MEDS: predniSONE 20 MG TAB PO SCH ×3 (00:24→22:02)
[2022-03-12] MEDS: CEFUROXIME 250 MG TAB PO SCH ×3 (00:28→22:03)
[2022-03-12] MEDS: SALINE 0.65 % NASAL SPRAY 45ML BOTTLE EACHNOSTRI SCH ×5 (00:29→22:06)
[2022-03-12 04:49] VITALS: BP 131/71
[2022-03-12 09:00] VITALS: BP 115/72
[2022-03-12] MEDS: CITALOPRAM HYDROBR 20 MG TAB PO SCH (11:54)
[2022-03-12 12:30] VITALS: BP 131/104
[2022-03-12 16:30] VITALS: BP 127/77
[2022-03-12 17:01] LABS: Urine Bacteria NONE SEEN /hpf (None Seen); Urine Blood 3+ /uL (Negative); Urine Hyaline Cast FEW /lpf (0 - 2); Urine Mucus FEW (None Seen); Urine Specific Gravity 1.019 (1.001-1.035); Urine WBC 7 /hpf (0 - 5)
[2022-03-12 22:00] VITALS: BP 99/67
[2022-03-13 05:00] VITALS: BP 106/52
[2022-03-13] MEDS: SALINE 0.65 % NASAL SPRAY 45ML BOTTLE EACHNOSTRI SCH ×5 (06:36→21:36)
[2022-03-13 08:48] VITALS: BP 112/60
[2022-03-13] MEDS: CITALOPRAM HYDROBR 20 MG TAB PO SCH (09:36)
[2022-03-13] MEDS: APIXABAN 5 MG TAB PO SCH ×2 (09:36→21:37)
[2022-03-13] MEDS: predniSONE 20 MG TAB PO SCH ×2 (09:36→21:37)
[2022-03-13] MEDS: CEFUROXIME 250 MG TAB PO SCH (09:37)
[2022-03-13 13:00] VITALS: BP 116/69
[2022-03-13] MEDS: DOCUSATE SOD 100 MG CAP PO PRN (16:08)
[2022-03-13 17:16] VITALS: BP 104/66
[2022-03-13 22:00] VITALS: BP 105/55
[2022-03-14 05:00] VITALS: BP 107/78
[2022-03-14] MEDS: SALINE 0.65 % NASAL SPRAY 45ML BOTTLE EACHNOSTRI SCH ×4 (06:00→22:30)
[2022-03-14] MEDS: predniSONE 20 MG TAB PO SCH ×2 (08:31→22:30)
[2022-03-14] MEDS: CITALOPRAM HYDROBR 20 MG TAB PO SCH (08:31)
[2022-03-14] MEDS: APIXABAN 5 MG TAB PO SCH ×2 (08:32→22:30)
[2022-03-14 08:38] VITALS: BP 109/66
[2022-03-14 13:19] VITALS: BP 106/63
[2022-03-14 17:04] VITALS: BP 103/57
[2022-03-14 22:00] VITALS: BP 98/58
[2022-03-15 05:00] VITALS: BP 119/72
[2022-03-15] MEDS: SALINE 0.65 % NASAL SPRAY 45ML BOTTLE EACHNOSTRI SCH ×4 (05:16→20:41)
[2022-03-15 08:00] VITALS: BP 109/62
[2022-03-15] MEDS: predniSONE 20 MG TAB PO SCH ×2 (08:28→20:41)
[2022-03-15] MEDS: CITALOPRAM HYDROBR 20 MG TAB PO SCH (08:28)
[2022-03-15] MEDS: APIXABAN 5 MG TAB PO SCH ×2 (08:28→20:41)
[2022-03-15 12:00] VITALS: BP 104/64
[2022-03-15 16:00] VITALS: BP 109/77
[2022-03-15 22:00] VITALS: BP 107/53
[2022-03-16 05:00] VITALS: BP 128/72
[2022-03-16] MEDS: SALINE 0.65 % NASAL SPRAY 45ML BOTTLE EACHNOSTRI SCH ×4 (05:29→21:10)
[2022-03-16 09:00] VITALS: BP 101/57
[2022-03-16] MEDS: predniSONE 20 MG TAB PO SCH ×2 (09:39→21:11)
[2022-03-16] MEDS: CITALOPRAM HYDROBR 20 MG TAB PO SCH (09:39)
[2022-03-16] MEDS: APIXABAN 5 MG TAB PO SCH ×2 (09:39→19:22)
[2022-03-16 12:30] VITALS: BP 111/62
[2022-03-16 16:56] VITALS: BP 122/55
[2022-03-16 21:35] VITALS: BP 100/61
[2022-03-17 05:00] VITALS: BP 103/65
[2022-03-17] MEDS: SALINE 0.65 % NASAL SPRAY 45ML BOTTLE EACHNOSTRI SCH ×4 (06:21→22:07)
[2022-03-17 09:00] VITALS: BP 142/76
[2022-03-17] MEDS: APIXABAN 5 MG TAB PO SCH ×2 (10:00→22:08)
[2022-03-17] MEDS: CITALOPRAM HYDROBR 20 MG TAB PO SCH (10:07)
[2022-03-17] MEDS: predniSONE 20 MG TAB PO SCH ×2 (10:07→22:08)
[2022-03-17 10:30] LABS: Basophils # (auto) 0 10 ^3/uL (0-0.2); Basophils % (auto) 0.2 % (0.0-2.0); Eosinophils # (auto) 0.1 10 ^3/uL (0-0.8); Eosinophils % (auto) 0.9 % (0.0-7.0); Hematocrit 35.2 % (36.0-46.0); Hemoglobin 11.7 g/dL (12.2-16.2); Lymphocytes # (auto) 2.1 10 ^3/uL (0.4-5.4); Lymphocytes % (auto) 34.9 % (10.0-50.0); Mean Corpuscular Hgb Conc. 33.1 g/dL (32.0-36.0); Mean Corpuscular Volume 96.6 fL (80.0-100.0); Monocytes # (auto) 0.3 10 ^3/uL (0-1.3); Monocytes % (auto) 4.8 % (0.0-12.0); Neutrophils # (auto) 3.6 10 ^3/uL (1.6-8.6); Neutrophils % (auto) 59.2 % (37.0-80.0); Nucleated Red Blood Cells % 0.2 %; Red Blood Cells 3.65 10^6/uL (4.0-5.20); Red Cell Distribution Width 18.2 % (11.8-14.3); White Blood Cell 6.1 10^3/uL (4.4-10.8)
[2022-03-17 10:35] LABS: Albumin 2.8 g/dL (3.4-5.0); Calcium 8.8 mg/dL (8.5-10.1); Potassium 3.9 mmol/L (3.5-5.1)
[2022-03-17 10:39] LABS: BUN/Creatinine Ratio 48.6; Bilirubin, Total 0.9 mg/dL (0.2-1.0); Total Protein 6.2 g/dL (6.4-8.2)
[2022-03-17 12:11] LABS: INR 1.14 (0.9-1.15); Partial Thromboplastin Time 25.3 sec (23.6-33.0)
[2022-03-17 13:00] VITALS: BP 119/43
[2022-03-17 17:00] VITALS: BP 107/87
[2022-03-17 21:24] VITALS: BP 127/47
[2022-03-18] MEDS: SALINE 0.65 % NASAL SPRAY 45ML BOTTLE EACHNOSTRI SCH ×4 (06:16→21:23)
[2022-03-18 09:06] VITALS: BP 86/56
[2022-03-18] MEDS: predniSONE 20 MG TAB PO SCH ×2 (09:52→21:22)
[2022-03-18] MEDS: APIXABAN 5 MG TAB PO SCH ×2 (09:52→21:22)
[2022-03-18] MEDS: CITALOPRAM HYDROBR 20 MG TAB PO SCH (09:52)
[2022-03-18] MEDS ORDERED: FUROSEMIDE 20 MG/2 ML VIAL IV ONE (10:30)
[2022-03-18 13:00] VITALS: BP 112/61
[2022-03-18 16:58] VITALS: BP 105/64
[2022-03-18 22:00] VITALS: BP 118/76
[2022-03-19 05:00] VITALS: BP 111/61
[2022-03-19] MEDS: SALINE 0.65 % NASAL SPRAY 45ML BOTTLE EACHNOSTRI SCH ×4 (05:27→21:31)
[2022-03-19 09:00] VITALS: BP 124/70
[2022-03-19] MEDS: predniSONE 20 MG TAB PO SCH ×2 (09:53→21:30)
[2022-03-19] MEDS: CITALOPRAM HYDROBR 20 MG TAB PO SCH (09:53)
[2022-03-19] MEDS: APIXABAN 5 MG TAB PO SCH ×2 (09:53→21:31)
[2022-03-19 12:00] VITALS: BP 92/47
[2022-03-19 16:00] VITALS: BP 92/56
[2022-03-19 22:00] VITALS: BP 95/54
[2022-03-20 05:00] VITALS: BP 100/59
[2022-03-20] MEDS: SALINE 0.65 % NASAL SPRAY 45ML BOTTLE EACHNOSTRI SCH ×5 (05:43→21:48)
[2022-03-20 08:20] VITALS: BP 132/70
[2022-03-20] MEDS: predniSONE 20 MG TAB PO SCH ×2 (09:50→21:48)
[2022-03-20] MEDS: APIXABAN 5 MG TAB PO SCH ×2 (09:50→21:48)
[2022-03-20] MEDS: CITALOPRAM HYDROBR 20 MG TAB PO SCH (09:50)
[2022-03-20] MEDS ORDERED: POTASSIUM CHL 20 Meq TABLET PO ONE (11:15)
[2022-03-20] MEDS ORDERED: FUROSEMIDE 20 MG TAB PO ONE (11:15)
[2022-03-20 12:04] VITALS: BP 118/67
[2022-03-20 16:00] VITALS: BP 101/73
[2022-03-20 22:01] VITALS: BP 103/59
[2022-03-21 05:00] VITALS: BP 120/65
[2022-03-21] MEDS: SALINE 0.65 % NASAL SPRAY 45ML BOTTLE EACHNOSTRI SCH ×4 (05:55→21:31)
[2022-03-21 08:00] VITALS: BP 116/66
[2022-03-21] MEDS: CITALOPRAM HYDROBR 20 MG TAB PO SCH (09:26)
[2022-03-21] MEDS: predniSONE 20 MG TAB PO SCH ×2 (09:26→21:30)
[2022-03-21] MEDS: APIXABAN 5 MG TAB PO SCH ×2 (09:26→21:31)
[2022-03-21] MEDS ORDERED: FUROSEMIDE 20 MG TAB PO ONE (10:30)
[2022-03-21] MEDS ORDERED: POTASSIUM CHL 20 Meq TABLET PO ONE (10:30)
[2022-03-21 12:00] VITALS: BP 116/66
[2022-03-21 16:00] VITALS: BP 104/63
[2022-03-21 22:00] VITALS: BP 101/50
[2022-03-22 05:00] VITALS: BP 108/39
[2022-03-22] MEDS: SALINE 0.65 % NASAL SPRAY 45ML BOTTLE EACHNOSTRI SCH ×4 (05:24→21:23)
[2022-03-22 06:03] LABS: Basophils # (auto) 0 10 ^3/uL (0-0.2); Basophils % (auto) 0.1 % (0.0-2.0); Eosinophils # (auto) 0 10 ^3/uL (0-0.8); Eosinophils % (auto) 0.1 % (0.0-7.0); Hematocrit 36.1 % (36.0-46.0); Hemoglobin 12.5 g/dL (12.2-16.2); Lymphocytes # (auto) 1.6 10 ^3/uL (0.4-5.4); Lymphocytes % (auto) 23.5 % (10.0-50.0); Mean Corpuscular Hemoglobin 33.3 pg (28.0-32.0); Mean Corpuscular Hgb Conc. 34.6 g/dL (32.0-36.0); Mean Corpuscular Volume 96.2 fL (80.0-100.0); Monocytes # (auto) 0.2 10 ^3/uL (0-1.3); Monocytes % (auto) 3.1 % (0.0-12.0); Neutrophils % (auto) 73.2 % (37.0-80.0); Nucleated Red Blood Cells % 0.1 %; Red Blood Cells 3.75 10^6/uL (4.0-5.20); Red Cell Distribution Width 17.4 % (11.8-14.3); White Blood Cell 6.9 10^3/uL (4.4-10.8)
[2022-03-22 06:13] LABS: Calcium 8.6 mg/dL (8.5-10.1)
[2022-03-22 06:15] LABS: BUN/Creatinine Ratio 68.6
[2022-03-22 09:00] VITALS: BP 94/52
[2022-03-22] MEDS: predniSONE 20 MG TAB PO SCH (09:23)
[2022-03-22] MEDS: CITALOPRAM HYDROBR 20 MG TAB PO SCH (09:23)
[2022-03-22] MEDS: APIXABAN 5 MG TAB PO SCH ×2 (09:23→21:23)
[2022-03-22] MEDS ORDERED: POTASSIUM CHL 20 Meq TABLET PO ONE (11:30)
[2022-03-22] MEDS ORDERED: FUROSEMIDE 20 MG TAB PO ONE (11:30)
[2022-03-22 13:00] VITALS: BP 116/55
[2022-03-22 17:00] VITALS: BP 93/53
[2022-03-22 22:00] VITALS: BP 121/65
[2022-03-23 05:00] VITALS: BP 121/50
[2022-03-23] MEDS: SALINE 0.65 % NASAL SPRAY 45ML BOTTLE EACHNOSTRI SCH ×4 (05:24→22:08)
[2022-03-23 09:00] VITALS: BP 112/57
[2022-03-23] MEDS: APIXABAN 5 MG TAB PO SCH ×2 (10:51→22:04)
[2022-03-23] MEDS: predniSONE 20 MG TAB PO SCH (10:51)
[2022-03-23] MEDS: CITALOPRAM HYDROBR 20 MG TAB PO SCH (10:51)
[2022-03-23] MEDS: DOCUSATE SOD 100 MG CAP PO PRN (10:54)
[2022-03-23 13:00] VITALS: BP 118/64
[2022-03-23 17:00] VITALS: BP 106/66
[2022-03-23 22:00] VITALS: BP 116/53
[2022-03-24 05:00] VITALS: BP 120/75
[2022-03-24] MEDS: SALINE 0.65 % NASAL SPRAY 45ML BOTTLE EACHNOSTRI SCH ×4 (06:00→21:50)
[2022-03-24 09:00] VITALS: BP 115/55
[2022-03-24] MEDS: predniSONE 20 MG TAB PO SCH (09:29)
[2022-03-24] MEDS: CITALOPRAM HYDROBR 20 MG TAB PO SCH (09:30)
[2022-03-24] MEDS: APIXABAN 5 MG TAB PO SCH ×2 (09:30→21:50)
[2022-03-24 13:00] VITALS: BP 106/70
[2022-03-24 17:06] VITALS: BP 108/60
[2022-03-24 22:00] VITALS: BP 110/59
[2022-03-25 05:00] VITALS: BP 110/66
[2022-03-25] MEDS: SALINE 0.65 % NASAL SPRAY 45ML BOTTLE EACHNOSTRI SCH ×4 (06:00→21:57)
[2022-03-25 09:00] VITALS: BP 116/66
[2022-03-25] MEDS: predniSONE 20 MG TAB PO SCH (09:43)
[2022-03-25] MEDS: CITALOPRAM HYDROBR 20 MG TAB PO SCH (09:43)
[2022-03-25] MEDS: APIXABAN 5 MG TAB PO SCH ×2 (09:44→21:58)
[2022-03-25 13:00] VITALS: BP 103/69
[2022-03-25 16:57] VITALS: BP 102/61
[2022-03-25 22:00] VITALS: BP 104/61
[2022-03-26 05:00] VITALS: BP 113/62
[2022-03-26] MEDS: SALINE 0.65 % NASAL SPRAY 45ML BOTTLE EACHNOSTRI SCH ×4 (05:51→21:00)
[2022-03-26 09:00] VITALS: BP 108/56
[2022-03-26] MEDS: APIXABAN 5 MG TAB PO SCH ×2 (09:21→21:00)
[2022-03-26] MEDS: predniSONE 20 MG TAB PO SCH (09:22)
[2022-03-26] MEDS: CITALOPRAM HYDROBR 20 MG TAB PO SCH (09:22)
[2022-03-26] MEDS ORDERED: POTASSIUM CHL 20 Meq TABLET PO ONE (12:30)
[2022-03-26] MEDS ORDERED: FUROSEMIDE 20 MG TAB PO ONE (12:30)
[2022-03-26 17:00] VITALS: BP 96/67
[2022-03-26 22:00] VITALS: BP 115/57
[2022-03-27 05:00] VITALS: BP 132/80
[2022-03-27 05:36] LABS: Basophils # (auto) 0 10 ^3/uL (0-0.2); Basophils % (auto) 0.7 % (0.0-2.0); Eosinophils # (auto) 0.2 10 ^3/uL (0-0.8); Eosinophils % (auto) 2.4 % (0.0-7.0); Hematocrit 36.3 % (36.0-46.0); Hemoglobin 12.3 g/dL (12.2-16.2); Lymphocytes % (auto) 41.2 % (10.0-50.0); Mean Corpuscular Hemoglobin 32.6 pg (28.0-32.0); Mean Corpuscular Hgb Conc. 33.8 g/dL (32.0-36.0); Mean Corpuscular Volume 96.4 fL (80.0-100.0); Monocytes # (auto) 0.4 10 ^3/uL (0-1.3); Monocytes % (auto) 5.3 % (0.0-12.0); Neutrophils # (auto) 3.6 10 ^3/uL (1.6-8.6); Neutrophils % (auto) 50.4 % (37.0-80.0); Nucleated Red Blood Cells % 0.1 %; Red Blood Cells 3.77 10^6/uL (4.0-5.20); Red Cell Distribution Width 17.4 % (11.8-14.3); White Blood Cell 7.2 10^3/uL (4.4-10.8)
[2022-03-27 05:53] LABS: BUN/Creatinine Ratio 47.2; Calcium 8.4 mg/dL (8.5-10.1); Potassium 3.3 mmol/L (3.5-5.1)
[2022-03-27] MEDS: SALINE 0.65 % NASAL SPRAY 45ML BOTTLE EACHNOSTRI SCH ×4 (05:55→21:13)
[2022-03-27] MEDS: CITALOPRAM HYDROBR 20 MG TAB PO SCH (08:37)
[2022-03-27] MEDS: POTASSIUM CHL 20 Meq TABLET PO SCH (08:37)
[2022-03-27] MEDS: predniSONE 20 MG TAB PO SCH (08:38)
[2022-03-27] MEDS: APIXABAN 5 MG TAB PO SCH ×2 (08:38→21:14)
[2022-03-27 09:00] VITALS: BP 104/52
[2022-03-27] MEDS: FUROSEMIDE 20 MG TAB PO SCH ×2 (09:07→12:38)
[2022-03-27] MEDS ORDERED: POTASSIUM CHL 20 Meq TABLET PO ONE (11:15)
[2022-03-27 13:00] VITALS: BP 115/57
[2022-03-27 17:00] VITALS: BP 108/58
[2022-03-27 22:00] VITALS: BP 101/58
[2022-03-28 05:00] VITALS: BP 114/56
[2022-03-28] MEDS: SALINE 0.65 % NASAL SPRAY 45ML BOTTLE EACHNOSTRI SCH ×4 (06:04→21:07)
[2022-03-28 09:00] VITALS: BP 121/73
[2022-03-28] MEDS: predniSONE 20 MG TAB PO SCH (09:54)
[2022-03-28] MEDS: POTASSIUM CHL 20 Meq TABLET PO SCH (09:56)
[2022-03-28] MEDS: CITALOPRAM HYDROBR 20 MG TAB PO SCH (09:56)
[2022-03-28] MEDS: APIXABAN 5 MG TAB PO SCH ×2 (09:56→21:07)
[2022-03-28] MEDS: FUROSEMIDE 20 MG TAB PO SCH (09:56)
[2022-03-28 13:00] VITALS: BP 109/68
[2022-03-28] MEDS ORDERED: ALPRAZolam 0.25 MG TAB PO ONE (16:15)
[2022-03-28 17:00] VITALS: BP 104/70
[2022-03-28] MEDS: ALPRAZolam 0.25 MG TAB PO SCH (21:07)
[2022-03-28 22:00] VITALS: BP 111/70
[2022-03-29 05:42] LABS: Basophils # (auto) 0 10 ^3/uL (0-0.2); Basophils % (auto) 0.3 % (0.0-2.0); Eosinophils # (auto) 0.1 10 ^3/uL (0-0.8); Eosinophils % (auto) 1.3 % (0.0-7.0); Hematocrit 35.9 % (36.0-46.0); Hemoglobin 12.1 g/dL (12.2-16.2); Lymphocytes # (auto) 2.4 10 ^3/uL (0.4-5.4); Lymphocytes % (auto) 36.3 % (10.0-50.0); Mean Corpuscular Hemoglobin 32.9 pg (28.0-32.0); Mean Corpuscular Hgb Conc. 33.8 g/dL (32.0-36.0); Mean Corpuscular Volume 97.3 fL (80.0-100.0); Monocytes # (auto) 0.4 10 ^3/uL (0-1.3); Monocytes % (auto) 6.3 % (0.0-12.0); Neutrophils # (auto) 3.7 10 ^3/uL (1.6-8.6); Neutrophils % (auto) 55.8 % (37.0-80.0); Nucleated Red Blood Cells % 0.2 %; Red Blood Cells 3.68 10^6/uL (4.0-5.20); Red Cell Distribution Width 17.1 % (11.8-14.3); White Blood Cell 6.6 10^3/uL (4.4-10.8)
[2022-03-29 05:44] VITALS: BP 103/64
[2022-03-29] MEDS: SALINE 0.65 % NASAL SPRAY 45ML BOTTLE EACHNOSTRI SCH ×4 (05:52→21:08)
[2022-03-29 06:00] LABS: Albumin 2.6 g/dL (3.4-5.0); BUN/Creatinine Ratio 47.2; Calcium 8.6 mg/dL (8.5-10.1); Potassium 3.4 mmol/L (3.5-5.1)
[2022-03-29 06:11] LABS: Bilirubin, Total 0.7 mg/dL (0.2-1.0); Total Protein 5.8 g/dL (6.4-8.2)
[2022-03-29 08:59] VITALS: BP 140/93
[2022-03-29] MEDS: POTASSIUM CHL 20 Meq TABLET PO SCH (10:02)
[2022-03-29] MEDS: FUROSEMIDE 20 MG TAB PO SCH (10:02)
[2022-03-29] MEDS: CITALOPRAM HYDROBR 20 MG TAB PO SCH (10:03)
[2022-03-29] MEDS: ALPRAZolam 0.25 MG TAB PO SCH ×2 (10:03→21:07)
[2022-03-29] MEDS: APIXABAN 5 MG TAB PO SCH ×2 (10:03→21:06)
[2022-03-29] MEDS: predniSONE 20 MG TAB PO SCH (10:04)
[2022-03-29] MEDS ORDERED: FUROSEMIDE 20 MG/2 ML VIAL IV ONE (12:00)
[2022-03-29] MEDS ORDERED: POTASSIUM CHL 20 Meq TABLET PO ONE (12:00)
[2022-03-29 13:00] VITALS: BP_SYST 108; BP_SYST 135; BP_DIAS 61; BP_DIAS 73
[2022-03-29 16:55] VITALS: BP 94/57
[2022-03-29 23:24] VITALS: BP 99/56
[2022-03-30] MEDS: SALINE 0.65 % NASAL SPRAY 45ML BOTTLE EACHNOSTRI SCH ×4 (05:05→21:25)
[2022-03-30 05:12] VITALS: BP 106/70
[2022-03-30 09:00] VITALS: BP 107/68
[2022-03-30] MEDS: CITALOPRAM HYDROBR 20 MG TAB PO SCH (10:23)
[2022-03-30] MEDS: APIXABAN 5 MG TAB PO SCH ×2 (10:24→21:25)
[2022-03-30] MEDS: predniSONE 20 MG TAB PO SCH (10:27)
[2022-03-30] MEDS: FUROSEMIDE 20 MG TAB PO SCH (10:31)
[2022-03-30] MEDS: POTASSIUM CHL 20 Meq TABLET PO SCH (10:32)
[2022-03-30] MEDS: ALPRAZolam 0.25 MG TAB PO SCH ×2 (10:34→21:26)
[2022-03-30 13:21] VITALS: BP 102/68
[2022-03-30 16:42] VITALS: BP 93/72
[2022-03-30 22:00] VITALS: BP 114/61
[2022-03-31 05:00] VITALS: BP 107/62
[2022-03-31] MEDS: SALINE 0.65 % NASAL SPRAY 45ML BOTTLE EACHNOSTRI SCH ×4 (05:37→22:34)
[2022-03-31 05:58] LABS: BUN/Creatinine Ratio 55.3; Calcium 8.7 mg/dL (8.5-10.1); Potassium 4.1 mmol/L (3.5-5.1)
[2022-03-31 09:00] VITALS: BP 96/63
[2022-03-31] MEDS: APIXABAN 5 MG TAB PO SCH ×2 (10:21→22:34)
[2022-03-31] MEDS: POTASSIUM CHL 20 Meq TABLET PO SCH (10:22)
[2022-03-31] MEDS: CITALOPRAM HYDROBR 20 MG TAB PO SCH (10:22)
[2022-03-31] MEDS: predniSONE 20 MG TAB PO SCH (10:23)
[2022-03-31] MEDS: FUROSEMIDE 20 MG TAB PO SCH (10:24)
[2022-03-31] MEDS: ALPRAZolam 0.25 MG TAB PO SCH ×2 (10:28→22:34)
[2022-03-31 13:00] VITALS: BP 136/90
[2022-03-31 17:08] VITALS: BP 102/58
[2022-03-31 22:00] VITALS: BP 113/68
[2022-04-01 05:00] VITALS: BP 104/72
[2022-04-01] MEDS: SALINE 0.65 % NASAL SPRAY 45ML BOTTLE EACHNOSTRI SCH ×4 (06:04→22:00)
[2022-04-01 09:00] VITALS: BP 103/58
[2022-04-01] MEDS: APIXABAN 5 MG TAB PO SCH ×2 (10:02→22:00)
[2022-04-01] MEDS: CITALOPRAM HYDROBR 20 MG TAB PO SCH (10:03)
[2022-04-01] MEDS: FUROSEMIDE 20 MG TAB PO SCH (10:03)
[2022-04-01] MEDS: POTASSIUM CHL 20 Meq TABLET PO SCH (10:03)
[2022-04-01] MEDS: predniSONE 20 MG TAB PO SCH (10:04)
[2022-04-01] MEDS: ALPRAZolam 0.25 MG TAB PO SCH ×2 (10:04→22:00)
[2022-04-01 13:00] VITALS: BP 144/66
[2022-04-01 17:00] VITALS: BP 111/66
[2022-04-01 22:00] VITALS: BP 107/53
[2022-04-02 05:00] VITALS: BP 114/59
[2022-04-02] MEDS: SALINE 0.65 % NASAL SPRAY 45ML BOTTLE EACHNOSTRI SCH ×4 (06:07→21:53)
[2022-04-02] MEDS: APIXABAN 5 MG TAB PO SCH ×2 (11:05→21:52)
[2022-04-02] MEDS: CITALOPRAM HYDROBR 20 MG TAB PO SCH (11:06)
[2022-04-02] MEDS: POTASSIUM CHL 20 Meq TABLET PO SCH (11:06)
[2022-04-02] MEDS: predniSONE 20 MG TAB PO SCH (11:06)
[2022-04-02] MEDS: ALPRAZolam 0.25 MG TAB PO SCH ×2 (11:07→21:52)
[2022-04-02] MEDS: FUROSEMIDE 20 MG TAB PO SCH (11:14)
[2022-04-02 16:57] VITALS: BP 111/58
[2022-04-02 22:00] VITALS: BP 99/51
[2022-04-03 04:47] VITALS: BP 102/60
[2022-04-03] MEDS: SALINE 0.65 % NASAL SPRAY 45ML BOTTLE EACHNOSTRI SCH ×4 (05:50→21:51)
[2022-04-03] MEDS: predniSONE 20 MG TAB PO SCH (08:56)
[2022-04-03] MEDS: FUROSEMIDE 20 MG TAB PO SCH (08:57)
[2022-04-03] MEDS: CITALOPRAM HYDROBR 20 MG TAB PO SCH (08:57)
[2022-04-03] MEDS: APIXABAN 5 MG TAB PO SCH ×2 (08:57→21:51)
[2022-04-03] MEDS: POTASSIUM CHL 20 Meq TABLET PO SCH (08:57)
[2022-04-03] MEDS: ALPRAZolam 0.25 MG TAB PO SCH (08:58)
[2022-04-03 09:00] VITALS: BP 111/75
[2022-04-03 13:00] VITALS: BP 110/66
[2022-04-03 16:25] VITALS: BP 102/57
[2022-04-03 21:23] VITALS: BP_SYST 115; BP_DIAS 49; BP_DIAS 99
[2022-04-04 05:07] VITALS: BP 116/60
[2022-04-04] MEDS: SALINE 0.65 % NASAL SPRAY 45ML BOTTLE EACHNOSTRI SCH ×4 (05:54→21:55)
[2022-04-04] MEDS: ALPRAZolam 0.25 MG TAB PO SCH (06:47)
[2022-04-04] MEDS: CITALOPRAM HYDROBR 20 MG TAB PO SCH (08:58)
[2022-04-04] MEDS: APIXABAN 5 MG TAB PO SCH ×2 (08:58→21:52)
[2022-04-04] MEDS: POTASSIUM CHL 20 Meq TABLET PO SCH (08:58)
[2022-04-04] MEDS: predniSONE 20 MG TAB PO SCH (08:58)
[2022-04-04] MEDS: FUROSEMIDE 20 MG TAB PO SCH (08:59)
[2022-04-04 09:00] VITALS: BP 119/63
[2022-04-04 13:00] VITALS: BP 126/75
[2022-04-04 16:38] VITALS: BP 93/55
[2022-04-04 22:11] VITALS: BP 107/67
[2022-04-05 05:19] VITALS: BP 100/68
[2022-04-05 05:26] LABS: Basophils # (auto) 0.1 10 ^3/uL (0-0.2); Basophils % (auto) 0.8 % (0.0-2.0); Eosinophils # (auto) 0.2 10 ^3/uL (0-0.8); Eosinophils % (auto) 2.9 % (0.0-7.0); Hematocrit 38.2 % (36.0-46.0); Hemoglobin 13.1 g/dL (12.2-16.2); Mean Corpuscular Hemoglobin 32.8 pg (28.0-32.0); Mean Corpuscular Hgb Conc. 34.2 g/dL (32.0-36.0); Mean Corpuscular Volume 95.8 fL (80.0-100.0); Monocytes # (auto) 0.4 10 ^3/uL (0-1.3); Monocytes % (auto) 6.2 % (0.0-12.0); Neutrophils # (auto) 3.4 10 ^3/uL (1.6-8.6); Neutrophils % (auto) 48.1 % (37.0-80.0); Nucleated Red Blood Cells % 0.1 %; Red Blood Cells 3.99 10^6/uL (4.0-5.20); Red Cell Distribution Width 16.6 % (11.8-14.3); White Blood Cell 7.1 10^3/uL (4.4-10.8)
[2022-04-05] MEDS: SALINE 0.65 % NASAL SPRAY 45ML BOTTLE EACHNOSTRI SCH ×4 (05:40→21:15)
[2022-04-05 05:48] LABS: BUN/Creatinine Ratio 52.5; Calcium 8.9 mg/dL (8.5-10.1); Potassium 3.6 mmol/L (3.5-5.1)
[2022-04-05] MEDS: ALPRAZolam 0.25 MG TAB PO SCH (06:30)
[2022-04-05 08:31] VITALS: BP 105/67
[2022-04-05] MEDS: APIXABAN 5 MG TAB PO SCH ×2 (10:00→21:15)
[2022-04-05] MEDS: POTASSIUM CHL 20 Meq TABLET PO SCH (10:00)
[2022-04-05] MEDS: CITALOPRAM HYDROBR 20 MG TAB PO SCH (10:00)
[2022-04-05] MEDS: predniSONE 20 MG TAB PO SCH (10:00)
[2022-04-05] MEDS: FUROSEMIDE 20 MG TAB PO SCH (10:01)
[2022-04-05 12:52] VITALS: BP 116/61
[2022-04-05 16:29] VITALS: BP 114/70
[2022-04-05 21:48] VITALS: BP 102/84
[2022-04-06 04:43] VITALS: BP 114/64
[2022-04-06] MEDS: SALINE 0.65 % NASAL SPRAY 45ML BOTTLE EACHNOSTRI SCH ×4 (07:27→21:03)
[2022-04-06] MEDS: ALPRAZolam 0.25 MG TAB PO SCH (07:27)
[2022-04-06 09:00] VITALS: BP 127/76
[2022-04-06] MEDS: predniSONE 20 MG TAB PO SCH (10:21)
[2022-04-06] MEDS: CITALOPRAM HYDROBR 20 MG TAB PO SCH (10:21)
[2022-04-06] MEDS: APIXABAN 5 MG TAB PO SCH ×2 (10:22→21:03)
[2022-04-06] MEDS: POTASSIUM CHL 20 Meq TABLET PO SCH (10:22)
[2022-04-06] MEDS: FUROSEMIDE 20 MG TAB PO SCH (10:22)
[2022-04-06 13:00] VITALS: BP 109/69
[2022-04-06 16:24] VITALS: BP 109/61
[2022-04-06 21:54] VITALS: BP 96/62
[2022-04-07 05:00] VITALS: BP 121/67
[2022-04-07] MEDS: ALPRAZolam 0.25 MG TAB PO SCH (06:09)
[2022-04-07] MEDS: SALINE 0.65 % NASAL SPRAY 45ML BOTTLE EACHNOSTRI SCH ×4 (06:10→21:11)
[2022-04-07 09:00] VITALS: BP 101/54
[2022-04-07] MEDS: CITALOPRAM HYDROBR 20 MG TAB PO SCH (09:30)
[2022-04-07] MEDS: predniSONE 20 MG TAB PO SCH (09:30)
[2022-04-07] MEDS: APIXABAN 5 MG TAB PO SCH ×2 (09:30→21:09)
[2022-04-07] MEDS: FUROSEMIDE 20 MG TAB PO SCH (09:31)
[2022-04-07] MEDS: POTASSIUM CHL 20 Meq TABLET PO SCH (09:31)
[2022-04-07 12:42] VITALS: BP 97/49
[2022-04-07 17:18] VITALS: BP 100/67
[2022-04-07 22:00] VITALS: BP 116/64
[2022-04-08 05:00] VITALS: BP 130/73
[2022-04-08] MEDS: SALINE 0.65 % NASAL SPRAY 45ML BOTTLE EACHNOSTRI SCH ×4 (06:41→21:04)
[2022-04-08] MEDS: ALPRAZolam 0.25 MG TAB PO SCH (06:42)
[2022-04-08 09:11] VITALS: BP 100/56
[2022-04-08] MEDS: predniSONE 20 MG TAB PO SCH (09:56)
[2022-04-08] MEDS: CITALOPRAM HYDROBR 20 MG TAB PO SCH (09:59)
[2022-04-08] MEDS: APIXABAN 5 MG TAB PO SCH ×2 (09:59→21:05)
[2022-04-08] MEDS: POTASSIUM CHL 20 Meq TABLET PO SCH (09:59)
[2022-04-08] MEDS: FUROSEMIDE 20 MG TAB PO SCH (10:00)
[2022-04-08 12:30] VITALS: BP 109/64
[2022-04-08 17:00] VITALS: BP 115/71
[2022-04-08 22:00] VITALS: BP 96/58
[2022-04-09 04:32] VITALS: BP 128/85
[2022-04-09] MEDS: ALPRAZolam 0.25 MG TAB PO SCH (06:42)
[2022-04-09] MEDS: SALINE 0.65 % NASAL SPRAY 45ML BOTTLE EACHNOSTRI SCH ×4 (06:42→21:10)
[2022-04-09 09:05] VITALS: BP 99/57
[2022-04-09] MEDS: predniSONE 20 MG TAB PO SCH (09:19)
[2022-04-09] MEDS: POTASSIUM CHL 20 Meq TABLET PO SCH (09:20)
[2022-04-09] MEDS: APIXABAN 5 MG TAB PO SCH ×2 (09:20→21:10)
[2022-04-09] MEDS: CITALOPRAM HYDROBR 20 MG TAB PO SCH (09:20)
[2022-04-09] MEDS: FUROSEMIDE 20 MG TAB PO SCH (09:20)
[2022-04-09 13:08] VITALS: BP 106/62
[2022-04-09 17:23] VITALS: BP 101/64
[2022-04-09 22:00] VITALS: BP 99/63
[2022-04-10 05:00] VITALS: BP 117/75
[2022-04-10] MEDS: SALINE 0.65 % NASAL SPRAY 45ML BOTTLE EACHNOSTRI SCH ×4 (06:03→22:17)
[2022-04-10] MEDS: ALPRAZolam 0.25 MG TAB PO SCH ×2 (07:00→10:04)
[2022-04-10 08:53] VITALS: BP 116/67
[2022-04-10] MEDS: predniSONE 20 MG TAB PO SCH (10:04)
[2022-04-10] MEDS: CITALOPRAM HYDROBR 20 MG TAB PO SCH (10:05)
[2022-04-10] MEDS: POTASSIUM CHL 20 Meq TABLET PO SCH (10:05)
[2022-04-10] MEDS: APIXABAN 5 MG TAB PO SCH ×2 (10:05→22:23)
[2022-04-10] MEDS: FUROSEMIDE 20 MG TAB PO SCH (10:06)
[2022-04-10 12:53] VITALS: BP 94/54
[2022-04-10 17:00] VITALS: BP 97/57
[2022-04-10 22:00] VITALS: BP 96/57
[2022-04-11 05:00] VITALS: BP 95/76
[2022-04-11] MEDS: SALINE 0.65 % NASAL SPRAY 45ML BOTTLE EACHNOSTRI SCH ×4 (06:19→21:12)
[2022-04-11] MEDS: ALPRAZolam 0.25 MG TAB PO SCH (06:47)
[2022-04-11 09:04] VITALS: BP 142/65
[2022-04-11] MEDS: POTASSIUM CHL 20 Meq TABLET PO SCH (10:15)
[2022-04-11] MEDS: predniSONE 20 MG TAB PO SCH (10:15)
[2022-04-11] MEDS: FUROSEMIDE 20 MG TAB PO SCH (10:16)
[2022-04-11] MEDS: APIXABAN 5 MG TAB PO SCH ×2 (10:16→21:11)
[2022-04-11] MEDS: CITALOPRAM HYDROBR 20 MG TAB PO SCH (10:16)
[2022-04-11 12:47] VITALS: BP 101/69
[2022-04-11 16:41] VITALS: BP 104/64
[2022-04-11 22:00] VITALS: BP 104/41
[2022-04-12 05:00] VITALS: BP 114/72
[2022-04-12] MEDS: ALPRAZolam 0.25 MG TAB PO SCH (06:30)
[2022-04-12] MEDS: SALINE 0.65 % NASAL SPRAY 45ML BOTTLE EACHNOSTRI SCH ×3 (06:31→18:00)
[2022-04-12 09:00] VITALS: BP 112/50
[2022-04-12] MEDS: APIXABAN 5 MG TAB PO SCH (09:17)
[2022-04-12] MEDS: CITALOPRAM HYDROBR 20 MG TAB PO SCH (09:18)
[2022-04-12] MEDS: POTASSIUM CHL 20 Meq TABLET PO SCH (09:18)
[2022-04-12] MEDS: FUROSEMIDE 20 MG TAB PO SCH (09:18)
[2022-04-12] MEDS: predniSONE 20 MG TAB PO SCH (09:19)
[2022-04-12 13:00] VITALS: BP 115/73
[2022-04-12 16:58] VITALS: BP 112/50
[2022-04-12 17:01] VITALS: BP 111/74
== END 2022-04-12 19:40 | disposition home health service (06) | DRG 871 ==
LOC: ER 10:05 → EDBD 10:05 → TELE 15:32 → TELE-EAST 21:00 → TELE-E-ADS 01-18 06:10 → TELE-EAST 01-18 06:35 → TELE-E-ADS 01-18 07:04 → TELE-EAST 01-29 09:10
PROVIDERS: ADMIT Internal Medicine; ATTEND Internal Medicine
PROC: XW033E5 Introduction of Remdesivir Anti-infective into Peripheral Vein, Percutaneous Approach, New Technology Group 5 (ICD-10-PCS; 2022-01-05)
PROC: 05HB33Z Insertion of Infusion Device into Right Basilic Vein, Percutaneous Approach (ICD-10-PCS; 2022-01-05)
PROC: B54MZZA Ultrasonography of Right Upper Extremity Veins, Guidance (ICD-10-PCS; 2022-01-05)
PROC: 5A0945A Assistance with Respiratory Ventilation, 24-96 Consecutive Hours, High Flow/Velocity Cannula (ICD-10-PCS; 2022-01-27)
PROC: 5A0945A Assistance with Respiratory Ventilation, 24-96 Consecutive Hours, High Flow/Velocity Cannula (ICD-10-PCS; principal; 2022-01-28)
PROC: 05HD33Z Insertion of Infusion Device into Right Cephalic Vein, Percutaneous Approach (ICD-10-PCS; 2022-03-06)
PROC: B54MZZA Ultrasonography of Right Upper Extremity Veins, Guidance (ICD-10-PCS; 2022-03-06)
DX: A41.89 Other specified sepsis (principal); U07.1 COVID-19; J12.82 Pneumonia due to coronavirus disease 2019; J96.01 Acute respiratory failure with hypoxia; J15.0 Pneumonia due to Klebsiella pneumoniae; I82.401 Acute embolism and thrombosis of unspecified deep veins of right lower extremity; D68.69 Other thrombophilia; E87.1 Hypo-osmolality and hyponatremia; N39.0 Urinary tract infection, site not specified; Z66 Do not resuscitate; J43.9 Emphysema, unspecified; D89.839 Cytokine release syndrome, grade unspecified; E87.6 Hypokalemia; E88.09 Other disorders of plasma-protein metabolism, not elsewhere classified; F41.9 Anxiety disorder, unspecified; J84.10 Pulmonary fibrosis, unspecified; E66.01 Morbid (severe) obesity due to excess calories; E87.5 Hyperkalemia; Z68.34 Body mass index [BMI] 34.0-34.9, adult; Z79.01 Long term (current) use of anticoagulants; Z79.899 Other long term (current) drug therapy; Z90.49 Acquired absence of other specified parts of digestive tract
CPT/HCPCS: 36415; 36600; 71045; 71275; 80048; 80053; 81001; 82306; 82728; 82805; 83036; 83605; 83615; 83735; 83880; 84100; 84439; 84443; 84484; 85007; 85025; 85027; 85379; 85610; 85730; 86141; 87040; 87070; 87077; 87086; 87088; 87186; 87205; 93005; 93306; 93970; 94640; 96365; 96368; 96375; 97110; 97116; 97163; 97530; 99291; G0378; J0696; J1100; J2405; J3490

== ENCOUNTER → 2022-06-13 | Outpatient (CLI) | payer MEDICARE ==
[~2022-06-13] MED LIST: ALBU108A5 INH; APIX5TAB PO
[2022-06-13 10:21] LABS: Basophils # (auto) 0.1 10 ^3/uL (0-0.2); Basophils % (auto) 2.2 % (0.0-2.0); Eosinophils # (auto) 0.2 10 ^3/uL (0-0.8); Eosinophils % (auto) 3.2 % (0.0-7.0); Hematocrit 47.8 % (36.0-46.0); Hemoglobin 14.9 g/dL (12.2-16.2); Lymphocytes # (auto) 2.6 10 ^3/uL (0.4-5.4); Lymphocytes % (auto) 40.6 % (10.0-50.0); Mean Corpuscular Hemoglobin 28.7 pg (28.0-32.0); Mean Corpuscular Hgb Conc. 31.3 g/dL (32.0-36.0); Mean Corpuscular Volume 91.9 fL (80.0-100.0); Monocytes # (auto) 0.4 10 ^3/uL (0-1.3); Monocytes % (auto) 6.7 % (0.0-12.0); Neutrophils % (auto) 47.3 % (37.0-80.0); Nucleated Red Blood Cells % 0.1 %; Red Blood Cells 5.21 10^6/uL (4.0-5.20); Red Cell Distribution Width 15.3 % (11.8-14.3); White Blood Cell 6.3 10^3/uL (4.4-10.8)
[2022-06-13 10:32] LABS: Albumin 2.8 g/dL (3.4-5.0); BUN/Creatinine Ratio 17.2; Calcium 9.1 mg/dL (8.5-10.1); Potassium 3.6 mmol/L (3.5-5.1)
[2022-06-13 10:36] LABS: Bilirubin, Total 0.7 mg/dL (0.2-1.0); Total Protein 7.1 g/dL (6.4-8.2)
== END | disposition home or self-care (01) ==
LOC: LAB 09:45
PROVIDERS: ATTEND Internal Medicine
DX: E11.22 Type 2 diabetes mellitus with diabetic chronic kidney disease (principal); E55.9 Vitamin D deficiency, unspecified
CPT/HCPCS: 36415; 80053; 80061; 82306; 85025

== ENCOUNTER → 2022-06-29 | Outpatient (CLI) | payer MEDICARE | END | disposition home or self-care (01) | LOC: XYW 10:02 | PROVIDERS: ATTEND Internal Medicine Pulmonary Disease | DX: J43.9 Emphysema, unspecified (principal); R06.00 Dyspnea, unspecified; R05.9 Cough, unspecified | CPT/HCPCS: 94060; 94727; 94729 ==

== ENCOUNTER → 2022-08-27 | Outpatient (CLI) | payer MEDICARE ==
[2022-08-27 08:50] LABS: Albumin 3.5 g/dL (3.4-5.0); Calcium 9.1 mg/dL (8.5-10.1); Potassium 4.1 mmol/L (3.5-5.1)
[2022-08-27 08:54] LABS: BUN/Creatinine Ratio 18.5; Bilirubin, Total 0.9 mg/dL (0.2-1.0); Total Protein 6.9 g/dL (6.4-8.2)
== END | disposition home or self-care (01) ==
LOC: LAB 07:53
PROVIDERS: ATTEND Internal Medicine
DX: E11.9 Type 2 diabetes mellitus without complications (principal); E55.9 Vitamin D deficiency, unspecified
CPT/HCPCS: 36415; 80053; 82306; 83036; 83880

== ENCOUNTER → 2022-08-27 | Outpatient (CLI) | payer MEDICARE | END | disposition home or self-care (01) | LOC: XYW 08:26 | PROVIDERS: ATTEND Internal Medicine | DX: I11.9 Hypertensive heart disease without heart failure (principal); E55.9 Vitamin D deficiency, unspecified; M25.471 Effusion, right ankle | CPT/HCPCS: 36415; 80053; 82306; 83036; 83880; 93306 ==

== ENCOUNTER → 2022-09-13 | Outpatient (CLI) | payer MEDICARE | END | disposition home or self-care (01) | LOC: LAB 12:16 | PROVIDERS: ATTEND Internal Medicine | DX: E55.9 Vitamin D deficiency, unspecified (principal); E11.9 Type 2 diabetes mellitus without complications | CPT/HCPCS: 82274 ==

== ENCOUNTER → 2022-11-01 | Outpatient (CLI) | payer MEDICARE ==
[2022-11-01 08:08] LABS: Basophils # (auto) 0.1 10 ^3/uL (0-0.2); Eosinophils # (auto) 0.1 10 ^3/uL (0-0.8); Eosinophils % (auto) 1.9 % (0.0-7.0); Hemoglobin 15.4 g/dL (12.2-16.2); Lymphocytes # (auto) 3.5 10 ^3/uL (0.4-5.4); Lymphocytes % (auto) 51.2 % (10.0-50.0); Mean Corpuscular Hemoglobin 29.8 pg (28.0-32.0); Mean Corpuscular Hgb Conc. 33.5 g/dL (32.0-36.0); Mean Corpuscular Volume 88.9 fL (80.0-100.0); Monocytes # (auto) 0.3 10 ^3/uL (0-1.3); Monocytes % (auto) 4.9 % (0.0-12.0); Neutrophils # (auto) 2.8 10 ^3/uL (1.6-8.6); Red Blood Cells 5.17 10^6/uL (4.0-5.20); Red Cell Distribution Width 14.1 % (11.8-14.3); White Blood Cell 6.8 10^3/uL (4.4-10.8)
[2022-11-01 08:19] LABS: Urine Blood Negative /uL (Negative); Urine Specific Gravity 1.016 (1.001-1.035)
[2022-11-01 08:52] LABS: Albumin 3.5 g/dL (3.4-5.0); BUN/Creatinine Ratio 16.4; Bilirubin, Total 1.2 mg/dL (0.2-1.0); Calcium 9.2 mg/dL (8.5-10.1); Potassium 3.6 mmol/L (3.5-5.1); Total Protein 7.8 g/dL (6.4-8.2)
== END | disposition home or self-care (01) ==
LOC: LAB 07:50
PROVIDERS: ATTEND Internal Medicine
DX: E66.09 Other obesity due to excess calories (principal); E11.9 Type 2 diabetes mellitus without complications; E55.9 Vitamin D deficiency, unspecified; R19.5 Other fecal abnormalities; Z12.11 Encounter for screening for malignant neoplasm of colon; Z00.00 Encounter for general adult medical examination without abnormal findings
CPT/HCPCS: 36415; 80053; 80061; 81001; 83036; 84439; 84443; 85025; 86803

== ENCOUNTER → 2023-02-13 | Outpatient (CLI) | payer MEDICARE ==
[2023-02-13 12:01] LABS: Calcium 9.2 mg/dL (8.5-10.1); Magnesium 2.4 mg/dL (1.6-2.6); Potassium 3.7 mmol/L (3.5-5.1)
[2023-02-13 12:04] LABS: BUN/Creatinine Ratio 22.6
== END | disposition home or self-care (01) ==
LOC: LAB 11:02
PROVIDERS: ATTEND Internal Medicine
DX: R11.15 Cyclical vomiting syndrome unrelated to migraine (principal)
CPT/HCPCS: 36415; 80048; 82330; 83735

== ENCOUNTER → 2023-06-06 | Outpatient (CLI) | payer MEDICARE | END | disposition home or self-care (01) | LOC: LAB 07:05 | PROVIDERS: ATTEND Internal Medicine | DX: E83.50 Unspecified disorder of calcium metabolism (principal) | CPT/HCPCS: 82330 ==

== ENCOUNTER → 2023-10-09 | Outpatient (CLI) | payer MEDICARE ==
[2023-10-09 08:37] LABS: Basophils # (auto) 0.1 10 ^3/uL (0-0.2); Basophils % (auto) 1.2 % (0.0-2.0); Eosinophils # (auto) 0.1 10 ^3/uL (0-0.8); Eosinophils % (auto) 1.6 % (0.0-7.0); Hematocrit 46.1 % (36.0-46.0); Hemoglobin 15.4 g/dL (12.2-16.2); Lymphocytes # (auto) 2.6 10 ^3/uL (0.4-5.4); Lymphocytes % (auto) 34.6 % (10.0-50.0); Mean Corpuscular Hemoglobin 30.8 pg (28.0-32.0); Mean Corpuscular Hgb Conc. 33.4 g/dL (32.0-36.0); Mean Corpuscular Volume 92.2 fL (80.0-100.0); Monocytes # (auto) 0.5 10 ^3/uL (0-1.3); Monocytes % (auto) 6.2 % (0.0-12.0); Neutrophils # (auto) 4.2 10 ^3/uL (1.6-8.6); Neutrophils % (auto) 56.4 % (37.0-80.0); Nucleated Red Blood Cells % 0.1 %; Red Blood Cells 4.99 10^6/uL (4.0-5.20); Red Cell Distribution Width 14.1 % (11.8-14.3); White Blood Cell 7.5 10^3/uL (4.4-10.8)
[2023-10-09 08:44] LABS: Urine Bacteria NONE SEEN /hpf (None Seen); Urine Blood Negative /uL (Negative); Urine Clarity Clear (Clear); Urine Color Yellow (Yellow); Urine Protein, UAD Negative (Negative); Urine Specific Gravity 1.018 (1.001-1.035); Urine Urobilinogen Normal (Negative); Urine WBC <1 /hpf (0 - 5)
[2023-10-09 09:33] LABS: Alanine Aminotransferase 22 U/L (7-40); Alkaline Phosphatase 105 U/L (46-116); Anion Gap 7 (5-15); Blood Urea Nitrogen 5 mg/dL (9-23); Calcium 9.4 mg/dL (8.5-10.1); Carbon Dioxide 30 mmol/L (20-30); Chloride 106 mmol/L (98-107); Glucose 99 mg/dL (74-106); LDL Cholesterol 46 mg/dL (< 100); Potassium 3.9 mmol/L (3.5-5.1); Sodium 143 mmol/L (136-145); Triglycerides 96 mg/dL (< 150)
[2023-10-09 09:34] LABS: Albumin 4.4 g/dL (3.2-4.8); Aspartate Aminotransferase 23 U/L (13-40); Cholesterol 114 mg/dL (< 200); Free T4 (Free Thyroxine) 1.16 ng/dL (0.89-1.76)
[2023-10-09 09:35] LABS: Bilirubin, Total 1.8 mg/dL (0.2-1.0); HDL Cholesterol 54 mg/dL (40-59); T3 Total 1.51 ng/mL (0.60-1.81); Total Protein 6.7 g/dL (5.7-8.2)
== END | disposition home or self-care (01) ==
LOC: LAB 08:15
PROVIDERS: ATTEND Internal Medicine
DX: Z13.1 Encounter for screening for diabetes mellitus (principal); Z00.01 Encounter for general adult medical examination with abnormal findings; Z29.9 Encounter for prophylactic measures, unspecified
CPT/HCPCS: 36415; 80053; 80061; 81001; 83036; 84439; 84443; 84480; 85025; 87086

== ENCOUNTER → 2023-12-11 | Outpatient (CLI) | payer MEDICARE ==
[2023-12-11 08:44] LABS: Basophils # (auto) 0.1 10 ^3/uL (0-0.2); Basophils % (auto) 0.7 % (0.0-2.0); Eosinophils # (auto) 0 10 ^3/uL (0-0.8); Eosinophils % (auto) 0.4 % (0.0-7.0); Hematocrit 46.5 % (36.0-46.0); Hemoglobin 15.7 g/dL (12.2-16.2); Lymphocytes # (auto) 3.2 10 ^3/uL (0.4-5.4); Lymphocytes % (auto) 33.7 % (10.0-50.0); Mean Corpuscular Hemoglobin 30.4 pg (28.0-32.0); Mean Corpuscular Hgb Conc. 33.7 g/dL (32.0-36.0); Mean Corpuscular Volume 90.3 fL (80.0-100.0); Monocytes # (auto) 0.5 10 ^3/uL (0-1.3); Monocytes % (auto) 5.7 % (0.0-12.0); Neutrophils # (auto) 5.7 10 ^3/uL (1.6-8.6); Neutrophils % (auto) 59.5 % (37.0-80.0); Nucleated Red Blood Cells % 0.1 %; Red Blood Cells 5.15 10^6/uL (4.0-5.20); Red Cell Distribution Width 13.5 % (11.8-14.3); White Blood Cell 9.6 10^3/uL (4.4-10.8)
[2023-12-11 09:13] LABS: Urine Bacteria FEW /hpf (None Seen); Urine Blood Negative /uL (Negative); Urine Clarity HAZY (Clear); Urine Color Yellow (Yellow); Urine Mucus FEW (None Seen); Urine Protein, UAD TRACE (Negative); Urine Specific Gravity 1.025 (1.001-1.035); Urine Urobilinogen Normal (Negative); Urine WBC 23 /hpf (0 - 5)
[2023-12-11 12:01] LABS: Magnesium 1.9 mg/dL (1.6-2.6)
== END | disposition home or self-care (01) ==
LOC: LAB 08:25
PROVIDERS: ATTEND Nurse Practitioner Gerontology
DX: E55.9 Vitamin D deficiency, unspecified (principal); E11.69 Type 2 diabetes mellitus with other specified complication; E78.5 Hyperlipidemia, unspecified; N39.0 Urinary tract infection, site not specified; K21.9 Gastro-esophageal reflux disease without esophagitis; R25.2 Cramp and spasm
CPT/HCPCS: 36415; 80061; 81001; 83036; 83735; 85025; 87086; 87088; 87186

== ENCOUNTER → 2023-12-30 | Outpatient (CLI) | payer MEDICARE | END | disposition home or self-care (01) | LOC: LAB 13:03 | PROVIDERS: ATTEND Internal Medicine Gastroenterology | DX: R19.5 Other fecal abnormalities (principal) | CPT/HCPCS: 82274 ==

== ENCOUNTER → 2024-01-13 | Outpatient (CLI) | payer MEDICARE ==
[2024-01-13 10:12] LABS: Basophils # (auto) 0.1 10 ^3/uL (0-0.2); Basophils % (auto) 1.2 % (0.0-2.0); Eosinophils # (auto) 0.1 10 ^3/uL (0-0.8); Eosinophils % (auto) 0.9 % (0.0-7.0); Hematocrit 44.3 % (36.0-46.0); Hemoglobin 15.1 g/dL (12.2-16.2); Lymphocytes # (auto) 2.6 10 ^3/uL (0.4-5.4); Lymphocytes % (auto) 32.5 % (10.0-50.0); Mean Corpuscular Hemoglobin 31.1 pg (28.0-32.0); Mean Corpuscular Volume 91.3 fL (80.0-100.0); Monocytes # (auto) 0.5 10 ^3/uL (0-1.3); Monocytes % (auto) 6.4 % (0.0-12.0); Neutrophils # (auto) 4.8 10 ^3/uL (1.6-8.6); Red Blood Cells 4.85 10^6/uL (4.0-5.20); Red Cell Distribution Width 14.8 % (11.8-14.3); White Blood Cell 8.1 10^3/uL (4.4-10.8)
[2024-01-13 10:22] LABS: Alanine Aminotransferase 16 U/L (7-40); Albumin 4.6 g/dL (3.2-4.8); Alkaline Phosphatase 115 U/L (46-116); Anion Gap 7 (5-15); BUN/Creatinine Ratio 16.7 (10.0-20.0); Blood Urea Nitrogen 10 mg/dL (9-23); Calcium 9.5 mg/dL (8.5-10.1); Carbon Dioxide 28 mmol/L (20-30); Chloride 107 mmol/L (98-107); Glucose 97 mg/dL (74-106); Potassium 3.7 mmol/L (3.5-5.1); Sodium 142 mmol/L (136-145)
[2024-01-13 10:23] LABS: Aspartate Aminotransferase 19 U/L (13-40); Bilirubin, Total 1.5 mg/dL (0.2-1.0); Total Protein 6.7 g/dL (5.7-8.2)
== END | disposition home or self-care (01) ==
LOC: LAB 09:21
PROVIDERS: ATTEND Nurse Practitioner Gerontology
DX: E11.69 Type 2 diabetes mellitus with other specified complication (principal); E66.8 Other obesity; R74.8 Abnormal levels of other serum enzymes
CPT/HCPCS: 36415; 80053; 85025

== ENCOUNTER → 2024-04-24 | Day surgery (SDC) | payer MEDICARE ==
[2024-04-21 10:42] LABS: Basophils # (auto) 0.1 10 ^3/uL (0-0.2); Basophils % (auto) 1.2 % (0.0-2.0); Eosinophils # (auto) 0.1 10 ^3/uL (0-0.8); Eosinophils % (auto) 1.5 % (0.0-7.0); Hemoglobin 15.1 g/dL (12.2-16.2); Lymphocytes # (auto) 2.5 10 ^3/uL (0.4-5.4); Lymphocytes % (auto) 37.7 % (10.0-50.0); Mean Corpuscular Hemoglobin 31.3 pg (28.0-32.0); Mean Corpuscular Hgb Conc. 34.2 g/dL (32.0-36.0); Mean Corpuscular Volume 91.5 fL (80.0-100.0); Monocytes # (auto) 0.4 10 ^3/uL (0-1.3); Monocytes % (auto) 6.5 % (0.0-12.0); Neutrophils # (auto) 3.5 10 ^3/uL (1.6-8.6); Neutrophils % (auto) 53.1 % (37.0-80.0); Nucleated Red Blood Cells % 0.1 %; Red Blood Cells 4.81 10^6/uL (4.0-5.20); Red Cell Distribution Width 13.3 % (11.8-14.3); White Blood Cell 6.6 10^3/uL (4.4-10.8)
[2024-04-21 10:49] LABS: INR 1.04 (0.9-1.15); Partial Thromboplastin Time 26.7 SEC (24.5-34.5)
[2024-04-21 11:19] LABS: Alanine Aminotransferase 16 U/L (7-40); Alkaline Phosphatase 117 U/L (46-116)
[2024-04-21 11:20] LABS: Albumin 4.5 g/dL (3.2-4.8); Anion Gap 6 (5-15); Aspartate Aminotransferase 17 U/L (13-40); BUN/Creatinine Ratio 10.6 (10.0-20.0); Blood Urea Nitrogen 7 mg/dL (9-23); Calcium 9.6 mg/dL (8.5-10.1); Carbon Dioxide 29 mmol/L (20-30); Chloride 108 mmol/L (98-107); Glucose 102 mg/dL (74-106); Potassium 3.7 mmol/L (3.5-5.1); Sodium 143 mmol/L (136-145)
[2024-04-21 11:21] LABS: Bilirubin, Total 1.3 mg/dL (0.2-1.0); Total Protein 6.8 g/dL (5.7-8.2)
[~2024-04-24] VITALS: Ht 165.1 cm; Wt 90.7 kg
[~2024-04-24] MED LIST changes: -APIX5TAB PO; +CITA10TA8 PO; +FLUT1AER17 IN; +IPRA0.03; +SODIUM CHLORIDE LOCK 10 ML ONE
[2024-04-24 13:08] VITALS: O2SAT 97
[2024-04-24] MEDS: fentaNYL CITRATE 100 MCG/2 ML VL ONE (13:14)
[2024-04-24] MEDS: MIDAZOLAM HCL 5 MG/ML-1ML VIAL ONE (13:14)
[2024-04-24] MEDS: diphenhdrAMINE HCL 50 MG/1 ML VL ONE (13:14)
[2024-04-24 13:50] VITALS: RESP 17; TEMP 97.8; O2SAT 98
[2024-04-24 14:30] VITALS: BP 155/84; PULSE 70; RESP 18; O2SAT 97
== END | disposition home or self-care (01) ==
LOC: GI 10:54
PROVIDERS: ATTEND Internal Medicine Gastroenterology
DX: R19.5 Other fecal abnormalities (principal); D12.4 Benign neoplasm of descending colon; D12.3 Benign neoplasm of transverse colon; C20 Malignant neoplasm of rectum; K57.30 Diverticulosis of large intestine without perforation or abscess without bleeding; J44.9 Chronic obstructive pulmonary disease, unspecified; F41.9 Anxiety disorder, unspecified; Z79.01 Long term (current) use of anticoagulants; Z79.899 Other long term (current) drug therapy; Z90.89 Acquired absence of other organs; Z90.49 Acquired absence of other specified parts of digestive tract; Z90.710 Acquired absence of both cervix and uterus; Z86.010 Personal history of colon polyps; Z98.890 Other specified postprocedural states; Z87.891 Personal history of nicotine dependence; Z88.5 Allergy status to narcotic agent
CPT/HCPCS: 36415; 45380; 45381; 45385; 80053; 85025; 85610; 85730; 88305; 88342; A4648; J1200; J2250; J3010; J7030; 99152; 99153

== ENCOUNTER → 2024-05-05 | Outpatient (CLI) | payer MEDICARE ==
[~2024-05-05] MED LIST changes: -SODIUM CHLORIDE LOCK 10 ML ONE
[2024-05-05 10:16] LABS: Alanine Aminotransferase 17 U/L (7-40); Albumin 4.6 g/dL (3.2-4.8); Alkaline Phosphatase 125 U/L (46-116); Anion Gap 9 (5-15); Aspartate Aminotransferase 16 U/L (13-40); BUN/Creatinine Ratio 10.1 (10.0-20.0); Blood Urea Nitrogen 7 mg/dL (9-23); Calcium 9.6 mg/dL (8.5-10.1); Carbon Dioxide 27 mmol/L (20-30); Chloride 105 mmol/L (98-107); Glucose 111 mg/dL (74-106); LDL Cholesterol 145 mg/dL (< 100); Potassium 3.8 mmol/L (3.5-5.1); Sodium 141 mmol/L (136-145); Triglycerides 164 mg/dL (< 150)
[2024-05-05 10:17] LABS: Bilirubin, Total 1.3 mg/dL (0.2-1.0); Cholesterol 204 mg/dL (< 200); HDL Cholesterol 50 mg/dL (40-59); Total Protein 7.2 g/dL (5.7-8.2)
[2024-05-05 10:25] LABS: Urine Bacteria FEW /hpf (None Seen); Urine Blood Negative /uL (Negative); Urine Clarity Clear (Clear); Urine Color Yellow (Yellow); Urine Mucus FEW (None Seen); Urine Protein, UAD TRACE (Negative); Urine Specific Gravity 1.023 (1.001-1.035); Urine Urobilinogen Normal (Negative); Urine WBC 5 /hpf (0 - 5); Urine pH 6.5 (5.0-9.0)
== END | disposition home or self-care (01) ==
LOC: LAB 09:12
PROVIDERS: ATTEND Internal Medicine
DX: Z13.1 Encounter for screening for diabetes mellitus (principal); E78.5 Hyperlipidemia, unspecified; R82.90 Unspecified abnormal findings in urine; R94.4 Abnormal results of kidney function studies; C20 Malignant neoplasm of rectum
CPT/HCPCS: 36415; 80053; 80061; 81001; 82378; 83036; 87086

== ENCOUNTER → 2024-05-11 | Outpatient (CLI) | payer MEDICARE | END | disposition home or self-care (01) | LOC: LAB 10:02 | PROVIDERS: ATTEND Internal Medicine Gastroenterology | DX: C20 Malignant neoplasm of rectum (principal) | CPT/HCPCS: 36415; 82565; 84520 ==

== ENCOUNTER → 2024-08-18 | Outpatient (CLI) | payer MEDICARE ==
[2024-08-18 09:23] LABS: Basophils # (auto) 0 10 ^3/uL (0-0.2); Basophils % (auto) 0.9 % (0.0-2.0); Eosinophils # (auto) 0.3 10 ^3/uL (0-0.8); Hematocrit 37.7 % (36.0-46.0); Hemoglobin 13.5 g/dL (12.2-16.2); Lymphocytes # (auto) 0.6 10 ^3/uL (0.4-5.4); Monocytes # (auto) 0.5 10 ^3/uL (0-1.3); Neutrophils # (auto) 2.6 10 ^3/uL (1.6-8.6)
[2024-08-18 09:25] LABS: Eosinophils % (auto) 8.1 % (0.0-7.0); Mean Corpuscular Hgb Conc. 35.8 g/dL (32.0-36.0); Mean Corpuscular Volume 94.9 fL (80.0-100.0); Monocytes % (auto) 12.1 % (0.0-12.0); Neutrophils % (auto) 64.9 % (37.0-80.0); Nucleated Red Blood Cells % 0.1 %; Platelet Count (auto) 152 10^3/uL (140-450); Red Blood Cells 3.98 10^6/uL (4.0-5.20)
== END | disposition home or self-care (01) ==
LOC: LAB 08:51
PROVIDERS: ATTEND Internal Medicine
DX: C20 Malignant neoplasm of rectum (principal)
CPT/HCPCS: 36415; 82378; 85025

== ENCOUNTER → 2024-09-01 | Outpatient (CLI) | payer MEDICARE ==
[2024-09-01 11:42] LABS: Basophils # (auto) 0.1 10 ^3/uL (0-0.2); Basophils % (auto) 1.2 % (0.0-2.0); Eosinophils # (auto) 0.2 10 ^3/uL (0-0.8); Eosinophils % (auto) 3.7 % (0.0-7.0); Hematocrit 37.1 % (36.0-46.0); Hemoglobin 13.4 g/dL (12.2-16.2); Lymphocytes # (auto) 0.5 10 ^3/uL (0.4-5.4); Lymphocytes % (auto) 10.4 % (10.0-50.0); Mean Corpuscular Hemoglobin 34.4 pg (28.0-32.0); Mean Corpuscular Volume 95.5 fL (80.0-100.0); Monocytes # (auto) 0.5 10 ^3/uL (0-1.3); Monocytes % (auto) 10.8 % (0.0-12.0); Neutrophils # (auto) 3.4 10 ^3/uL (1.6-8.6); Neutrophils % (auto) 73.9 % (37.0-80.0); Nucleated Red Blood Cells % 0.1 %; Platelet Count (auto) 185 10^3/uL (140-450); Red Blood Cells 3.88 10^6/uL (4.0-5.20); Red Cell Distribution Width 18.2 % (11.8-14.3); White Blood Cell 4.7 10^3/uL (4.4-10.8)
[2024-09-01 11:54] LABS: Alanine Aminotransferase 12 U/L (7-40); Albumin 4.4 g/dL (3.2-4.8); Alkaline Phosphatase 86 U/L (46-116); Anion Gap 7 (5-15); Aspartate Aminotransferase 20 U/L (13-40); BUN/Creatinine Ratio 16.4 (10.0-20.0); Bilirubin, Total 1.5 mg/dL (0.2-1.0); Blood Urea Nitrogen 11 mg/dL (9-23); Calcium 9.7 mg/dL (8.7-10.4); Carbon Dioxide 31 mmol/L (20-31); Chloride 105 mmol/L (98-107); Glucose 104 mg/dL (74-106); Potassium 3.1 mmol/L (3.5-5.1); Sodium 143 mmol/L (136-145); Total Protein 6.6 g/dL (5.7-8.2)
== END | disposition home or self-care (01) ==
LOC: LAB 10:39
PROVIDERS: ATTEND Internal Medicine
DX: C20 Malignant neoplasm of rectum (principal)
CPT/HCPCS: 36415; 80053; 82378; 83615; 85025

== ENCOUNTER → 2024-11-06 | Outpatient (CLI) | payer MEDICARE ==
[2024-11-06 08:53] LABS: Alanine Aminotransferase 17 U/L (7-40); Albumin 4.2 g/dL (3.2-4.8); Alkaline Phosphatase 97 U/L (46-116); Anion Gap 7 (5-15); Aspartate Aminotransferase 21 U/L (13-40); BUN/Creatinine Ratio 17.2 (10.0-20.0); Blood Urea Nitrogen 11 mg/dL (9-23); Calcium 9.9 mg/dL (8.7-10.4); Carbon Dioxide 28 mmol/L (20-31); Glucose 96 mg/dL (74-106); Potassium 3.9 mmol/L (3.5-5.1); Sodium 144 mmol/L (136-145)
[2024-11-06 08:54] LABS: Bilirubin, Total 1.1 mg/dL (0.2-1.0); Total Protein 6.8 g/dL (5.7-8.2)
[2024-11-06 08:55] LABS: Chloride 109 mmol/L (98-107)
[2024-11-06 09:17] LABS: Basophils # (auto) 0.1 10 ^3/uL (0-0.2); Eosinophils # (auto) 0.2 10 ^3/uL (0-0.8); Eosinophils % (auto) 3.7 % (0.0-7.0); Hematocrit 41.9 % (36.0-46.0); Hemoglobin 14.2 g/dL (12.2-16.2); Lymphocytes % (auto) 17.1 % (10.0-50.0); Mean Corpuscular Hemoglobin 32.7 pg (28.0-32.0); Monocytes # (auto) 0.4 10 ^3/uL (0-1.3); Monocytes % (auto) 6.5 % (0.0-12.0); Neutrophils # (auto) 4.1 10 ^3/uL (1.6-8.6); Neutrophils % (auto) 71.7 % (37.0-80.0); Nucleated Red Blood Cells % 0.1 %; Platelet Count (auto) 235 10^3/uL (140-450); Red Blood Cells 4.36 10^6/uL (4.0-5.20); Red Cell Distribution Width 13.4 % (11.8-14.3); White Blood Cell 5.7 10^3/uL (4.4-10.8)
== END | disposition home or self-care (01) ==
LOC: LAB 08:04
PROVIDERS: ATTEND Internal Medicine Hematology & Oncology
DX: Z51.81 Encounter for therapeutic drug level monitoring (principal); C20 Malignant neoplasm of rectum; J44.0 Chronic obstructive pulmonary disease with (acute) lower respiratory infection; R09.02 Hypoxemia; K62.5 Hemorrhage of anus and rectum
CPT/HCPCS: 36415; 80053; 82378; 85025

== ENCOUNTER → 2024-12-01 | Outpatient (CLI) | payer MEDICARE ==
[2024-12-01 11:50] LABS: Basophils # (auto) 0.1 10 ^3/uL (0-0.2); Basophils % (auto) 1.3 % (0.0-2.0); Eosinophils # (auto) 0.2 10 ^3/uL (0-0.8); Eosinophils % (auto) 5.6 % (0.0-7.0); Hematocrit 41.8 % (36.0-46.0); Hemoglobin 14.2 g/dL (12.2-16.2); Lymphocytes % (auto) 22.2 % (10.0-50.0); Mean Corpuscular Hemoglobin 31.7 pg (28.0-32.0); Mean Corpuscular Volume 93.3 fL (80.0-100.0); Monocytes # (auto) 0.3 10 ^3/uL (0-1.3); Monocytes % (auto) 7.5 % (0.0-12.0); Neutrophils # (auto) 2.8 10 ^3/uL (1.6-8.6); Neutrophils % (auto) 63.4 % (37.0-80.0); Nucleated Red Blood Cells % 0.2 %; Platelet Count (auto) 236 10^3/uL (140-450); Red Blood Cells 4.48 10^6/uL (4.0-5.20); Red Cell Distribution Width 13.3 % (11.8-14.3); White Blood Cell 4.5 10^3/uL (4.4-10.8)
[2024-12-01 11:52] LABS: INR 1.03 (0.9-1.15); Prothrombin Time 10.9 sec (9.3-11.8)
[2024-12-01 12:14] LABS: Alanine Aminotransferase 12 U/L (7-40); Albumin 4.3 g/dL (3.2-4.8); Alkaline Phosphatase 92 U/L (46-116); Anion Gap 7 (5-15); Aspartate Aminotransferase 19 U/L (13-40); BUN/Creatinine Ratio 16.2 (10.0-20.0); Blood Urea Nitrogen 16 mg/dL (9-23); Calcium 9.7 mg/dL (8.7-10.4); Carbon Dioxide 27 mmol/L (20-31); Glucose 103 mg/dL (74-106); Sodium 144 mmol/L (136-145)
[2024-12-01 12:15] LABS: Bilirubin, Total 0.7 mg/dL (0.2-1.0); Total Protein 6.6 g/dL (5.7-8.2)
[2024-12-01 12:25] LABS: Chloride 110 mmol/L (98-107)
== END | disposition home or self-care (01) ==
LOC: LAB 10:58
PROVIDERS: ATTEND Internal Medicine
DX: Z51.81 Encounter for therapeutic drug level monitoring (principal); C20 Malignant neoplasm of rectum; K62.5 Hemorrhage of anus and rectum; J44.0 Chronic obstructive pulmonary disease with (acute) lower respiratory infection; R09.02 Hypoxemia
CPT/HCPCS: 36415; 80053; 82378; 83615; 85025; 85610

== ENCOUNTER → 2025-02-08 | Outpatient (CLI) | payer MEDICARE ==
[2025-02-08 10:08] LABS: Basophils # (auto) 0.1 10 ^3/uL (0-0.2); Basophils % (auto) 0.9 % (0.0-2.0); Eosinophils # (auto) 0.1 10 ^3/uL (0-0.8); Eosinophils % (auto) 2.2 % (0.0-7.0); Hematocrit 38.2 % (36.0-46.0); Hemoglobin 13.4 g/dL (12.2-16.2); Lymphocytes % (auto) 15.4 % (10.0-50.0); Mean Corpuscular Hemoglobin 31.7 pg (28.0-32.0); Mean Corpuscular Hgb Conc. 35.1 g/dL (32.0-36.0); Mean Corpuscular Volume 90.3 fL (80.0-100.0); Monocytes # (auto) 0.6 10 ^3/uL (0-1.3); Monocytes % (auto) 8.2 % (0.0-12.0); Neutrophils # (auto) 4.9 10 ^3/uL (1.6-8.6); Neutrophils % (auto) 73.3 % (37.0-80.0); Platelet Count (auto) 141 10^3/uL (140-450); Red Blood Cells 4.23 10^6/uL (4.0-5.20); Red Cell Distribution Width 14.3 % (11.8-14.3); White Blood Cell 6.7 10^3/uL (4.4-10.8)
[2025-02-08 10:38] LABS: Alanine Aminotransferase 28 U/L (7-40); Albumin 4.6 g/dL (3.2-4.8); Alkaline Phosphatase 112 U/L (46-116); Anion Gap 5 (5-15); Aspartate Aminotransferase 24 U/L (13-40); BUN/Creatinine Ratio 16.7 (10.0-20.0); Bilirubin, Total 0.8 mg/dL (0.2-1.0); Blood Urea Nitrogen 12 mg/dL (9-23); Calcium 9.5 mg/dL (8.7-10.4); Carbon Dioxide 29 mmol/L (20-31); Chloride 105 mmol/L (98-107); Glucose 102 mg/dL (74-106); Potassium 3.9 mmol/L (3.5-5.1); Sodium 139 mmol/L (136-145); Total Protein 6.9 g/dL (5.7-8.2)
== END | disposition home or self-care (01) ==
LOC: LAB 09:48
DX: C20 Malignant neoplasm of rectum (principal); R97.8 Other abnormal tumor markers; Z79.899 Other long term (current) drug therapy
CPT/HCPCS: 36415; 80053; 82378; 85025; 86301

== ENCOUNTER → 2025-02-22 | Outpatient (CLI) | payer MEDICARE ==
[2025-02-22 10:10] LABS: Basophils # (auto) 0.1 10 ^3/uL (0-0.2); Basophils % (auto) 1.2 % (0.0-2.0); Eosinophils # (auto) 0.1 10 ^3/uL (0-0.8); Eosinophils % (auto) 1.9 % (0.0-7.0); Hematocrit 39.3 % (36.0-46.0); Hemoglobin 13.6 g/dL (12.2-16.2); Lymphocytes % (auto) 18.9 % (10.0-50.0); Mean Corpuscular Hemoglobin 31.4 pg (28.0-32.0); Mean Corpuscular Hgb Conc. 34.5 g/dL (32.0-36.0); Mean Corpuscular Volume 90.9 fL (80.0-100.0); Monocytes # (auto) 0.5 10 ^3/uL (0-1.3); Monocytes % (auto) 9.4 % (0.0-12.0); Neutrophils # (auto) 3.7 10 ^3/uL (1.6-8.6); Neutrophils % (auto) 68.6 % (37.0-80.0); Nucleated Red Blood Cells % 0.1 %; Platelet Count (auto) 106 10^3/uL (140-450); Red Blood Cells 4.32 10^6/uL (4.0-5.20); Red Cell Distribution Width 14.4 % (11.8-14.3); White Blood Cell 5.5 10^3/uL (4.4-10.8)
[2025-02-22 10:19] LABS: Alanine Aminotransferase 23 U/L (7-40); Albumin 4.6 g/dL (3.2-4.8); Alkaline Phosphatase 114 U/L (46-116); Anion Gap 11 (5-15); Aspartate Aminotransferase 25 U/L (13-40); BUN/Creatinine Ratio 16.2 (10.0-20.0); Blood Urea Nitrogen 11 mg/dL (9-23); Calcium 9.8 mg/dL (8.7-10.4); Carbon Dioxide 29 mmol/L (20-31); Chloride 105 mmol/L (98-107); Potassium 3.8 mmol/L (3.5-5.1); Total Protein 6.9 g/dL (5.7-8.2)
[2025-02-22 10:20] LABS: Bilirubin, Total 0.9 mg/dL (0.2-1.0)
[2025-02-22 10:27] LABS: Glucose 110 mg/dL (74-106); Sodium 145 mmol/L (136-145)
== END | disposition home or self-care (01) ==
LOC: LAB 09:31
DX: C20 Malignant neoplasm of rectum (principal); Z79.899 Other long term (current) drug therapy
CPT/HCPCS: 36415; 80053; 82378; 85025; 86301

== ENCOUNTER → 2025-03-08 | Outpatient (CLI) | payer MEDICARE ==
[2025-03-08 10:49] LABS: Basophils # (auto) 0.1 10 ^3/uL (0-0.2); Basophils % (auto) 1.2 % (0.0-2.0); Eosinophils # (auto) 0.1 10 ^3/uL (0-0.8); Eosinophils % (auto) 1.2 % (0.0-7.0); Hematocrit 37.8 % (36.0-46.0); Lymphocytes # (auto) 1.2 10 ^3/uL (0.4-5.4); Lymphocytes % (auto) 23.5 % (10.0-50.0); Mean Corpuscular Hemoglobin 31.3 pg (28.0-32.0); Mean Corpuscular Hgb Conc. 34.5 g/dL (32.0-36.0); Mean Corpuscular Volume 90.7 fL (80.0-100.0); Monocytes # (auto) 0.6 10 ^3/uL (0-1.3); Monocytes % (auto) 11.3 % (0.0-12.0); Neutrophils # (auto) 3.2 10 ^3/uL (1.6-8.6); Neutrophils % (auto) 62.8 % (37.0-80.0); Nucleated Red Blood Cells % 0.1 %; Platelet Count (auto) 107 10^3/uL (140-450); Red Blood Cells 4.16 10^6/uL (4.0-5.20); Red Cell Distribution Width 14.8 % (11.8-14.3); White Blood Cell 5.1 10^3/uL (4.4-10.8)
[2025-03-08 11:29] LABS: Alanine Aminotransferase 17 U/L (7-40); Alkaline Phosphatase 103 U/L (46-116); Anion Gap 9 (5-15); Calcium 9.7 mg/dL (8.7-10.4); Carbon Dioxide 29 mmol/L (20-31); Chloride 105 mmol/L (98-107); Sodium 143 mmol/L (136-145)
[2025-03-08 11:30] LABS: BUN/Creatinine Ratio 19.4 (10.0-20.0); Blood Urea Nitrogen 12 mg/dL (9-23); Glucose 98 mg/dL (74-106)
[2025-03-08 11:31] LABS: Total Protein 6.7 g/dL (5.7-8.2)
[2025-03-08 11:32] LABS: Albumin 4.6 g/dL (3.2-4.8); Aspartate Aminotransferase 18 U/L (13-40); Bilirubin, Total 0.8 mg/dL (0.2-1.0)
[2025-03-08 11:33] LABS: Potassium 3.4 mmol/L (3.5-5.1)
== END | disposition home or self-care (01) ==
LOC: LAB 10:04
PROVIDERS: ATTEND Internal Medicine Hematology & Oncology
DX: C20 Malignant neoplasm of rectum (principal); Z79.899 Other long term (current) drug therapy; Z85.09 Personal history of malignant neoplasm of other digestive organs
CPT/HCPCS: 36415; 80053; 82378; 85025; 86301